=== PATIENT | female | born 1970 | race Caucasian/White ===

== ENCOUNTER 2017-02-28 13:42 | Emergency (ER) | payer OTHER ==
[2017-02-28 13:53] VITALS: BP 107/78; PULSE 86; TEMP 99.7; BMI 22.1
[2017-02-28] MEDS ORDERED: SODIUM CHLORIDE 1,000 ML IV STA (15:52)
--- NOTE | 2017-02-28 16:01 | PDOC ---
History of Present Illness - General Chief Complaint: Pain Stated Complaint: PAIN Time Seen by Provider: 02/28/17 14:34 - History of Present Illness Initial Comments: 02/28/17 15:54 Patient is a 46 yo F, with a PMH of Hypothyroidism, HTN, COPD, RA, HLD, Anxiety , presented today because of abdominal pain, nausea, and vomiting that has been going on for 2 months. She said 2 months there was mold in her house, especially in the refrigerator, and ever since then she has been feeling sick. She describes the pain has crampy, 5/10, intermittent pain and is getting worse. She also has diarrhea that started around the same time. She describes stool as mushy with white "worms" in it. She said she was given flagyl and probioitics by a doctor but did not notice any improvement in symptoms. She also says she hasn't been taking any of her medications for a few months because of insurance issues. Past History - Past Medical History Allergies/Adverse Reactions: Allergies Allergy/AdvReac Type Severity Reaction Status Date / Time cephalexin monohydrate Allergy Vomiting Verified 02/28/17 13:53 [From Keflex] erythromycin base Allergy Vomiting Verified 02/28/17 13:53 Penicillins Allergy Vomiting Verified 02/28/17 13:53 Sulfa (Sulfonamide Allergy Vomiting Verified 02/28/17 13:53 Antibiotics) ibuprofen AdvReac Severe Vomiting Verified 02/28/17 13:53 ALEVE AdvReac Severe Vomiting Uncoded 02/28/17 13:53 ASPIRIN AdvReac Severe Vomiting Uncoded 02/28/17 13:53 Home Medications: Ambulatory Orders Alprazolam 1 mg PO QID PRN 03/26/16 Levothyroxine [Synthroid -] 100 mcg PO DAILY 03/26/16 Methadone [Dolophine -] 90 mg PO DAILY 03/26/16 Oxycodone HCl/Acetaminophen [Percocet 5-325 mg Tablet] 1 - 2 tab PO Q6H PRN #30 tab MDD 8 03/27/16 Anemia: Yes (IN THE PAST 10 YRS AGO) Cardiac Disorders: No CVA: No COPD: Yes (EMPHYSEMA) Diabetes: No GI Disorders: No Disorders: No HTN: No Hypercholesterolemia: Yes Liver Disease: No Psychiatric Problems: Yes (ANXIETY) Seizures: Yes (CHILDHOOD THEN GREW OUT OF) Thyroid Disease: Yes Other medical history: rheumthoid arthritis - Surgical History Abdominal Surgery: No Appendectomy: No Cardiac Surgery: No Cholecystectomy: Yes (gALL BLADDER) Lung Surgery: No Neurologic Surgery: No Orthopedic Surgery: No - Suicide/Smoking/Psychosocial Hx Smoking History: Current every day smoker Have you smoked in the past 12 months: Yes Number of Cigarettes Smoked Daily: 20 Information on smoking cessation initiated: Yes 'Breaking Loose' booklet given: 12/21/15 Hx Alcohol Use: No Drug/Substance Use Hx: No Substance Use Type: None Hx Substance Use Treatment: No Review of Systems - Review of Systems Able to Perform ROS?: Yes Constitutional: No: Chills, Diaphoresis, Fever HEENTM: No: Nose Congestion, Throat Pain Respiratory: No: Cough, Shortness of Breath, Wheezing Cardiac (ROS): No: Chest Pain, Edema ABD/GI: Yes: Diarrhea, Nausea, Vomiting. No: Rectal Bleeding Neurological: Yes: Headache. No: Numbness, Tingling, Tremors Psychiatric: Yes: Anxiety *Physical Exam - Vital Signs Last Vital Signs Temp Pulse Resp BP Pulse Ox 99.7 F H 86 14 107/78 100 02/28/17 13:47 02/28/17 13:47 02/28/17 13:47 02/28/17 13:47 02/28/17 13:47 - Physical Exam Comments: 02/28/17 16:07 General: NAD, appears comfortable HEENT: dry mucous membranes, orophyranx clear, anicteric Neck: supple Heart: Regular rate and rhythm, no Murmurs rubs or gallops Lungs: CTA B/L, no rales rhonchi or wheezing Abd: +BS, NT, ND EXT: no edema ED Treatment Course - LABORATORY CBC & Chemistry Diagram: 02/28/17 16:00 02/28/17 16:00 - RADIOLOGY Radiology Studies Ordered: Category Date Time Status CHEST X-RAY PORTABLE* [RAD] Stat Radiology 02/28/17 15:49 Ordered Medical Decision Making - Medical Decision Making 02/28/17 16:09 Abdominal Pain CBC, CMP U/A Chest X ray Stool culture Stool ova and parasites C. diff toxin Urine 02/28/17 19:[address] noted. Patient s/p cholecystectomy. Will discharge. Will need to follow up GI outpatient. 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 If there is an emergency, please go to your nearest emergency room.
[2017-02-28 16:17] LABS: MCHC 34.6 g/dl (32.0-36.0); MEAN CELL VOLUME 92.7 fl (80-96); MEAN PLT VOLUME 8.1 fl (7.5-11.1); PLATELET COUNT 241 K/MM3 (134-434); RDW 14.5 % (11.6-15.6); WHITE BLOOD COUNT 5.3 K/mm3 (4.0-10.0)
[2017-02-28 16:35] LABS: URINE APPEARANCE SLCLOUDY; URINE BILIRUBIN NEGATIVE (NEGATIVE); URINE BLOOD 1+ (NEGATIVE); URINE COLOR AMBER; URINE GLUCOSE (UA) NEGATIVE (NEGATIVE); URINE KETONE NEGATIVE (NEGATIVE); URINE NITRITE NEGATIVE (NEGATIVE); URINE PROTEIN NEGATIVE (NEGATIVE)
[2017-02-28 16:41] LABS: ALBUMIN 3.6 g/dl (3.4-5.0); ANION GAP 3 (8-16); CALCIUM 8.1 mg/dL (8.5-10.1); CO2 30 mmol/L (21-32); GLUCOSE,RANDOM 75 mg/dL (74-106); SGOT/AST 14 U/L (15-37); SGPT/ALT 15 U/L (12-78)
[2017-02-28 16:43] LABS: ALK PHOS 68 U/L (45-117); BILIRUBIN,TOTAL 0.4 mg/dL (0.2-1.0); TOT PROT 6.5 g/dl (6.4-8.2)
[2017-02-28 16:46] LABS: URINE BACTERIA RARE /hpf (NONE SEEN); URINE MUCUS RARE; URINE RBC 24 /hpf (0-3); URINE WBC 1 /hpf (3-5)
--- NOTE | 2017-02-28 16:47 | PDOC ---
Attending Attestation - Resident Resident Name: Soni Calderón - ED Attending Attestation I have performed the following: I have examined & evaluated the patient, The case was reviewed & discussed with the resident, I agree w/resident's findings & plan, Exceptions are as noted - HPI HPI: 02/28/17 16:48 46 F with h/o Hypothyroidism, HTN, COPD, RA, HLD, presents to ER with 2 months of abdominal pain and loose stools. She states that ever since she had a colonoscopy 2 months ago, she has had abdominal discomfort. The pain is diffuse , but often localizes to her LLQ. She states that she has daily soft, loose stools, but no watery diarrhea. She endorses chills but no fevers. Pt also complains of occasional nausea. Pt states that she is followed by GI Dr. Olvera. She has seen him for these problems and was given a course of flagyl, which she states did alleviate her symptoms temporarily. - Physicial Exam PE: 02/28/17 16:50 "GENERAL: Awake, alert, and fully oriented, in no acute distress HEAD: No signs of trauma EYES: PERRLA, EOMI, sclera anicteric, conjunctiva clear ENT: Auricles normal inspection, hearing grossly normal, nares patent, oropharynx clear without exudates. Moist mucosa NECK: Nontender, no stepoffs, Normal ROM, supple, no lymphadenopathy, JVD, or masses LUNGS: Breath sounds equal, clear to auscultation bilaterally. No wheezes, and no crackles HEART: Regular rate and rhythm, normal S1 and S2, no murmurs, rubs or gallops ABDOMEN: Soft, mild LLQ TTP, normoactive bowel sounds. No guarding, no rebound. No masses EXTREMITIES: Normal range of motion, no edema. No clubbing or cyanosis. No cords, erythema, or tenderness NEUROLOGICAL: Cranial nerves II through XII intact. 5/5 strength and sensation in all extremities, Normal speech, normal gait SKIN: Warm, Dry, normal turgor, no rashes or lesions noted. " - Medical Decision Making 02/28/17 16:50 46 F with 2 months of abdominal pain and loose stools. Exam notable for LLQ tenderness. Will r/o colitis with CT scan. Will also send stool cultures and O& P to evaluate for infectious diarrhea. - Labs - CTAP - IVF - Reassess
[2017-02-28 18:44] LABS: URINE LEUK ESTERASE Negative (NEGATIVE)
--- NOTE | 2017-02-28 20:04 | PDOC ---
*Physical Exam - Vital Signs Last Vital Signs Temp Pulse Resp BP Pulse Ox 99.7 F H 86 14 107/78 100 02/28/17 13:47 02/28/17 13:47 02/28/17 13:47 02/28/17 13:47 02/28/17 13:47 ED Treatment Course - LABORATORY CBC & Chemistry Diagram: 02/28/17 16:00 02/28/17 16:00 - ADDITIONAL ORDERS Additional order review: Laboratory Results 02/28/17 02/28/17 16:00 16:00 Sodium 136 Potassium 4.4 Chloride 103 Carbon Dioxide 30 Anion Gap 3 L BUN 8 D Creatinine 1.0 Creat Clearance w eGFR 59.43 Random Glucose 75 Calcium 8.1 L Total Bilirubin 0.4 D AST 14 L D ALT 15 D Alkaline Phosphatase 68 D Total Protein 6.5 Albumin 3.6 Urine Color [place] Urine Appearance Slcloudy Urine pH 5.0 Ur Specific [place] 1.016 Urine Protein Negative Urine Glucose (UA) Negative Urine Ketones Negative Urine Blood 1+ H Urine Nitrite Negative Urine Bilirubin Negative Urine Urobilinogen 2.0 H Ur Leukocyte Esterase Negative Urine RBC 24 Urine WBC 1 Ur Epithelial Cells Few Urine Bacteria Rare Urine Mucus Rare Urine HCG, Qual Negative 02/28/17 16:00 RBC 3.49 L MCV 92.7 MCHC 34.6 RDW 14.5 MPV 8.1 D - Medications Given in the ED: ED Medications Discontinued Medications Generic Name Dose Route Start Last Admin Trade Name Freq PRN Reason Stop Dose Admin Sodium Chloride 1,000 mls @ 1,000 mls/hr 02/28/17 15:52 02/28/17 16:14 Normal Saline - IV 02/28/17 16:51 1,000 mls/hr ASDIR STA Administration Medical Decision Making - Medical Decision Making 02/28/17 20:02 Received signout on this 46-year-old female with crampy abdominal pain and diarrhea, recently treated with Flagyl. Plan at time of sign out was to follow up CAT scan to rule out colitis and to discuss disposition with Dr. Olvera, her gastric neurologist. CAT scan shows no evidence of colitis or acute pathology, patient is status post cholecystectomy which explains CAT scan findings. Case discussed with Dr. Olvera, recommends discharge and will follow-up in the office but does not recommend repeat antibiotics at this time. Patient understands return criteria. 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 If there is an emergency, please go to your nearest emergency room. - Post Discharge Activity
--- NOTE | 2017-03-01 09:46 | EKG ---
Test Reason : Blood Pressure : / mmHG Vent. Rate : 062 BPM Atrial Rate : 062 BPM P-R Int : 182 ms QRS Dur : 086 ms QT Int : 450 ms P-R-T Axes : 063 024 062 degrees QTc Int : 456 ms NORMAL SINUS RHYTHM SEPTAL INFARCT (CITED ON OR BEFORE 15-FEB-2015) ABNORMAL ECG WHEN COMPARED WITH ECG OF 15-FEB-2015 16:40, NO SIGNIFICANT CHANGE WAS FOUND Confirmed by SIS UREÑA MD ([id number]) on 03/01/2017 9:46:38 AM Referred By: Confirmed By:SIS UREÑA MD
== END 2017-02-28 20:19 | disposition home or self-care (01) ==
LOC: JER 13:42
PROC: 3E0337Z Introduction of Electrolytic and Water Balance Substance into Peripheral Vein, Percutaneous Approach (ICD-10-PCS; principal; 2017-02-28)
DX: R10.9 Unspecified abdominal pain (principal); Z91.14 Patient's other noncompliance with medication regimen; I10 Essential (primary) hypertension; E78.00 Pure hypercholesterolemia, unspecified; E03.9 Hypothyroidism, unspecified; J44.9 Chronic obstructive pulmonary disease, unspecified; F41.9 Anxiety disorder, unspecified; M06.9 Rheumatoid arthritis, unspecified; F17.210 Nicotine dependence, cigarettes, uncomplicated; Z86.73 Personal history of transient ischemic attack (TIA), and cerebral infarction without residual deficits; Z90.49 Acquired absence of other specified parts of digestive tract
CPT/HCPCS: 36415; 71010-TC; 74177-TC; 80053; 81003; 81015; 84443; 84703; 85027; 93005; 93010; 99281-25

== ENCOUNTER 2018-12-16 07:07 | Emergency (ER) | payer OTHER ==
[2018-12-16 07:23] VITALS: BMI 19.5
--- NOTE | 2018-12-16 07:37 | PDOC ---
History of Present Illness - General Chief Complaint: Pain Stated Complaint: ABD PAIN Time Seen by Provider: 12/16/18 07:37 History Source: Patient Exam Limitations: No Limitations - History of Present Illness Initial Comments: 48 year old female with PMH RA (noncompliant with medication), multiple kidney stones, multiple UTIs, rectal fissure presented to ED for dysuria x2 days. Pt reported she went to [facility] x2 days ago, was diagnosed with a UTI , prescribed Macrobid. Pt was unable to obtain the prescription for a day, and so only took 3 doses yesterday. Pt reported her symptoms are worsening, constant. Pt reported pain to her entire vaginal area. Pt admitted to subjective fever, generalized weakness, nausea, vomiting, suprapubic pain. Pt admitted to being sexually active. Past History - Past Medical History Allergies/Adverse Reactions: Allergies Allergy/AdvReac Type Severity Reaction Status Date / Time cephalexin monohydrate Allergy Vomiting Verified 12/16/18 07:16 [From Keflex] erythromycin base Allergy Vomiting Verified 12/16/18 07:16 Penicillins Allergy Vomiting Verified 12/16/18 07:16 Sulfa (Sulfonamide Allergy Vomiting Verified 12/16/18 07:16 Antibiotics) ibuprofen AdvReac Severe Vomiting Verified 12/16/18 07:16 ALEVE AdvReac Severe Vomiting Uncoded 12/16/18 07:16 ASPIRIN AdvReac Severe Vomiting Uncoded 12/16/18 07:16 Home Medications: Ambulatory Orders Alprazolam 1 mg PO QID PRN 03/26/16 Levothyroxine [Synthroid -] 100 mcg PO DAILY 03/26/16 Methadone [Dolophine -] 90 mg PO DAILY 03/26/16 Oxycodone HCl/Acetaminophen [Percocet 5-325 mg Tablet] 1 - 2 tab PO Q6H PRN #30 tab MDD 8 03/27/16 Ciprofloxacin HCl [Cipro] 500 mg PO BID #13 tablet 12/16/18 Ondansetron [Zofran Odt -] 4 mg SL TID #9 od.tablet 12/16/18 Phenazopyridine HCl [Pyridium] 200 mg PO TID #6 tablet 12/16/18 Anemia: Yes (IN THE PAST 10 YRS AGO) Cardiac Disorders: No CVA: No COPD: Yes (EMPHYSEMA) Diabetes: No GI Disorders: No Disorders: No HTN: No Hypercholesterolemia: Yes Liver Disease: No Psychiatric Problems: Yes (ANXIETY) Seizures: Yes (CHILDHOOD THEN GREW OUT OF) Thyroid Disease: Yes Other medical history: anal fisure, rheumatoid arthritis, degenerative disc disease - Surgical History Abdominal Surgery: No Appendectomy: No Cardiac Surgery: No Cholecystectomy: Yes (gALL BLADDER) Lung Surgery: No Neurologic Surgery: No Orthopedic Surgery: No - Suicide/Smoking/Psychosocial Hx Smoking History: Current every day smoker Have you smoked in the past 12 months: Yes Number of Cigarettes Smoked Daily: 20 Information on smoking cessation initiated: No 'Breaking Loose' booklet given: 12/21/15 Hx Alcohol Use: No Drug/Substance Use Hx: No Substance Use Type: None Hx Substance Use Treatment: No Review of Systems - Review of Systems Able to Perform ROS?: Yes Comments:: General: denied fever, chills, generalized weakness. HEENT: denied sore throat, rhinorrhea, ear pain. Cardiovascular: denied chest pain, palpitations, syncope, diaphoresis. Respiratory: denied shortness of breath, cough, sputum production, hemoptysis. Gastrointestinal: admitted to abdominal pain, nausea, vomiting. denied diarrhea , constipation, blood in stool. Genitourinary: admitted to dysuria, increased urinary frequency, flank pain. denied hematuria, urinary incontinence. Back: denied back pain. Musculoskeletal: denied joint pain, muscle pain, joint swelling. Neurological: denied headache, dizziness, numbness, tingling, weakness. Integumentary: denied rash, laceration, abrasion. Hematologic/Lymphatic: denied bruising or bleeding. *Physical Exam - Vital Signs Last Vital Signs Temp Pulse Resp BP Pulse Ox 98 F 76 18 150/88 99 12/16/18 07:10 12/16/18 07:10 12/16/18 07:10 12/16/18 07:10 12/16/18 07:10 - Physical Exam Comments: Constitutional: Well-nourished, Well-developed, appearing stated age. HEENT: head is normocephalic, atraumatic. EOMI. PERRLA. Neck: supple. Full ROM. Cardiovascular: regular heart rhythm. no murmurs. no pericardial friction rub. Respiratory: clear to auscultation bilaterally. no crackles, rhonchi or wheezing. no stridor. Gastrointestinal: soft, nontender. normal bowel sounds. no rebound, guarding, masses. Extremities: peripheral pulses intact. no lower extremity edema. Neurological: CN 2-12 grossly intact. moves all four extremities. Psych: awake, alert, oriented x3. follows commands. answers questions appropriately. Pelvic: normal external genitalia. no blood in vaginal canal. cervical os closed. no CMT. no adnexal tenderness bilaterally. no abnormal discharge. ED Treatment Course - LABORATORY CBC & Chemistry Diagram: 12/16/18 08:20 12/16/18 11:49 Medical Decision Making - Medical Decision Making 12/16/18 08:09 48 year old female with above PMH presented to ED for dysuria associated with suprapubic pain, nausea, vomiting, generalized weakness, subjective fever. Pt denied taking NSAID/Tylenol today. Pt reported she would like to not treat a potential STI infection before the results return. Initial Vital Signs Temp Pulse Resp BP Pulse Ox 98 F 76 18 150/88 99 12/16/18 07:10 12/16/18 07:10 12/16/18 07:10 12/16/18 07:10 12/16/18 07:10 Afebrile. No tachycardia. No tachypnea. Hypertensive. No hypoxia on room air. Labs ordered: CBC, CMP, serum , UA/UC, GC/Chlamydia amplification Imaging ordered: none Medications ordered: tylenol IV, normal saline bolus 1000 cc once, zofrna 4 mg IV once 12/16/18 08:58 Urine Test Results Urine Color Yellow 12/16/18 08:20 Urine Appearance Clear 12/16/18 08:20 Urine pH 6.0 (5.0-8.0) 12/16/18 08:20 Ur Specific Cadet 1.006 (1.010-1.035) L 12/16/18 08:20 Urine Protein Negative (NEGATIVE) 12/16/18 08:20 Urine Glucose (UA) Negative (NEGATIVE) 12/16/18 08:20 Urine Ketones Trace (NEGATIVE) H 12/16/18 08:20 Urine Blood 3+ (NEGATIVE) H 12/16/18 08:20 Urine Nitrite Negative (NEGATIVE) 12/16/18 08:20 Urine Bilirubin Negative (NEGATIVE) 12/16/18 08:20 Ur Leukocyte Esterase Negative (NEGATIVE) 12/16/18 08:20 WBC = 0 Bacteria = 20 -Pt has taken 3 Macrobid doses 12/16/18 09:01 CBC WBC 7.9 K/mm3 (4.0-10.0) 12/16/18 08:20 RBC 4.00 M/mm3 (3.60-5.2) 12/16/18 08:20 Hgb 13.0 GM/dL (10.7-15.3) 12/16/18 08:20 Hct 37.6 % (32.4-45.2) 12/16/18 08:20 MCV 93.8 fl (80-96) 12/16/18 08:20 MCH 32.4 pg (25.7-33.7) 12/16/18 08:20 MCHC 34.5 g/dl (32.0-36.0) 12/16/18 08:20 RDW 13.4 % (11.6-15.6) 12/16/18 08:20 Plt Count 260 K/MM3 (134-434) D 12/16/18 08:20 MPV 8.5 fl (7.5-11.1) D 12/16/18 08:20 Absolute Neuts (auto) 6.0 K/mm3 (1.5-8.0) 12/16/18 08:20 Neutrophils % 75.2 % (42.8-82.8) D 12/16/18 08:20 Lymphocytes % 15.2 % (8-40) D 12/16/18 08:20 Monocytes % 7.9 % (3.8-10.2) 12/16/18 08:20 Eosinophils % 1.1 % (0-4.5) 12/16/18 08:20 Basophils % 0.6 % (0-2.0) 12/16/18 08:20 Nucleated RBC % 0 % (0-0) 12/16/18 08:20 No leukocytosis. No left shift. CMP Sodium 126 mmol/L (136-145) L 12/16/18 08:20 Potassium 4.3 mmol/L (3.5-5.1) 12/16/18 08:20 Chloride 95 mmol/L (98-107) L 12/16/18 08:20 Carbon Dioxide 24 mmol/L (21-32) 12/16/18 08:20 Anion Gap 8 MMOL/L (8-16) 12/16/18 08:20 BUN 5.3 mg/dL (7-18) L 12/16/18 08:20 Creatinine 1.0 mg/dL (0.55-1.3) 12/16/18 08:20 Est GFR (CKD-EPI)AfAm 76.61 12/16/18 08:20 Est GFR (CKD-EPI)NonAf 66.10 12/16/18 08:20 Random Glucose 86 mg/dL (74-106) 12/16/18 08:20 Calcium 9.3 mg/dL (8.5-10.1) 12/16/18 08:20 Total Bilirubin 1.0 mg/dL (0.2-1) 12/16/18 08:20 AST 19 U/L (15-37) 12/16/18 08:20 ALT 15 U/L (13-61) 12/16/18 08:20 Alkaline Phosphatase 68 U/L (45-117) 12/16/18 08:20 Total Protein 7.5 g/dl (6.4-8.2) 12/16/18 08:20 Albumin 4.3 g/dl (3.4-5.0) 12/16/18 08:20 Hyponatremia. -IVF running 12/16/18 10:07 CT abdomen/pelvis report: Marian Name: ORLANDO PHELPS DEPARTMENT OF RADIOLOGY Phys: Kassie Jensen RESIDENT : 1970 Age: 48 Sex: F [facility] Acct: [id number] Loc: [address] Exam Date: 12/16/18 Status: [place] [id number] Unit Number: [id number] ACCESSION # : [id number] EXAM#: TYPE/EXAM: RESULT: [id number] CT/SPIRAL- RENAL-STONE CT CT of the abdomen and pelvis without oral or IV contrast. HISTORY: 48-year-old female with dysuria and right flank pain TECHNIQUE: Multiaxial CT scan of the abdomen and pelvis without oral or IV contrast was obtained from the lung bases to the symphysis pubis. Sagittal and coronal reformats were performed. Comparison is made to prior exam dated February 28, 2017. FINDINGS: The visualized lung bases and inferior mediastinum are grossly unremarkable. Evaluation of the solid abdominal organs and bowel loops is limited due to lack of oral and IV contrast. The unenhanced liver, spleen, and pancreas are unremarkable. The patient is status post cholecystectomy. The CBD is dilated measuring up to 1.2 cm with mild central intrahepatic biliary ductal dilatation , unchanged since the prior exam. The adrenal glands are unremarkable. No right or left renal stones are seen. There is fullness in the right and left renal calyces and ureters however without obvious hyperdense stone. Visualization of the ureters is limited due to paucity of periureteral fat. There is a 6 mm faint hyperdensity in the left upper renal pole (axial image 31). No periureteral or perinephric stranding seen. No stones seen in the urinary bladder. The urinary bladder is nondistended limiting its evaluation. The uterus is unremarkable. No adnexal masses seen. Oral contrast traverses the small bowel to the colon with no evidence of abnormal bowel dilatation to suggest bowel obstruction. The appendix is normal. There is no evidence of pneumoperitoneum, or enlarged lymph nodes by CT size criteria. There is small free pelvic fluid. There is no gross destructive bony lesion. There is thoracolumbar spine scoliosis with significant L5-S1 disc degenerative changes There is moderate aortic and iliac mural calcifications. IMPRESSION: No CT evidence of nephrolithiasis or ureterolithiasis. Nonspecific symmetric mild fullness in the renal calyces and ureters without obvious obstructing process. If clinically indicated renal scan with diuretic may be obtained for further evaluation. 6 mm hyperdensity in the left upper renal pole possibly cyst containing proteinaceous material or blood products. This is commensurate with Bosniak 2F cyst. Follow-up MRI with contrast in 6 months is suggested. Small amount of free pelvic fluid is likely physiologic in a menstruating female. Alternatively this could be reactive to an inflammatory/infectious process. Correlate clinically. Status post cholecystectomy. Diffusely dilated CBD up to 1.2 cm with mild central intrahepatic biliary ductal dilatation, unchanged since the prior exam of 2016 likely physiologic postcholecystectomy phenomenon. Moderate aortoiliac mural calcifications. Thoracolumbar spine scoliosis with significant L5-S1 disc degenerative changes. Reported By: Jose Brice MD 12/16 1001 12/16/18 10:27 Pt informed of results and need for F/U with PCP/urology promptly. Pt advised to continue taking Macrobid. Pt reported she is uncomfortable taking Macrobid as she does not believe it is working and thinks it is making her vomit. Medications ordered: Cipro 500 mg PO once 12/16/18 11:09 Pt reassessed, reported improvement of symptoms. IVF still running. Pending repeat CMP for hyponatremia. 12/16/18 11:29 Pt reassessed, sleeping comfortably. IVF still running. 12/16/18 11:59 Repeat CMP drawn. Pending results. 12/16/18 12:41 CMP Sodium 134 mmol/L (136-145) L 12/16/18 11:49 Potassium 4.5 mmol/L (3.5-5.1) 12/16/18 11:49 Chloride 103 mmol/L (98-107) 12/16/18 11:49 Carbon Dioxide 24 mmol/L (21-32) 12/16/18 11:49 Anion Gap 7 MMOL/L (8-16) L 12/16/18 11:49 BUN 5.0 mg/dL (7-18) L 12/16/18 11:49 Creatinine 0.9 mg/dL (0.55-1.3) 12/16/18 11:49 Est GFR (CKD-EPI)AfAm 87.02 12/16/18 11:49 Est GFR (CKD-EPI)NonAf 75.08 12/16/18 11:49 Random Glucose 71 mg/dL (74-106) L 12/16/18 11:49 Calcium 8.4 mg/dL (8.5-10.1) L 12/16/18 11:49 Total Bilirubin 0.7 mg/dL (0.2-1) 12/16/18 11:49 AST 18 U/L (15-37) 12/16/18 11:49 ALT 13 U/L (13-61) 12/16/18 11:49 Alkaline Phosphatase 59 U/L (45-117) 12/16/18 11:49 Total Protein 6.6 g/dl (6.4-8.2) 12/16/18 11:49 Albumin 3.7 g/dl (3.4-5.0) 12/16/18 11:49 Serum , Qual Negative 12/16/18 08:20 Hyponatremia improved. Pt likely has UTI, will switch to Cipro based on patient request. No CT evidence of urinary obstruction. Incidental left renal cyst noted, pt informed to F/U with PCP/urology. Pt educated on Tylenol use for pain/fever control. Hyponatremia likely secondary to dehydration, decreased PO intake - improved with 2L normal saline. Pt discharged. Discharge medications: Pyridium, Cipro, Zofran SL *DC/Admit/Observation/Transfer Diagnosis at time of Disposition: UTI (urinary tract infection), Burning with urination, Hyponatremia, Renal cyst - Discharge Dispostion Disposition: HOME Condition at time of disposition: Improved Decision to Admit order: Yes - Prescriptions Prescriptions: Ciprofloxacin HCl [Cipro] 500 mg PO BID #13 tablet Ondansetron [Zofran Odt -] 4 mg SL TID #9 od.tablet Phenazopyridine HCl [Pyridium] 200 mg PO TID #6 tablet - Referrals Referrals: Ish Kathleen MD [Staff Physician] - Irving Gtz MD [Staff Physician] - Yony Joel MD [Primary Care Provider] - - Patient Instructions Printed Discharge Instructions: DI for Urinary Tract Infection (UTI), DI for Hyponatremia Additional Instructions: Your lab work showed your sodium was low. Eat three meals a day. Drink water throughout the day. Have this number repeated at your primary care doctor's office within 3 days. Your urine analysis was negative for UTI, the Macrobid is working. The rest of your lab work was normal. The STD testing will come back in a few days. Your CT showed no kidney stones, but incidentally a cyst was found on your left kidney. It was recommended by the radiologist to have a MRI Abdomen/Pelvis with IV contrast in 6 months to monitor this. Follow up with your urologist on this finding within 7 days. I have sent a prescription to your pharmacy for Cipro at your request to continue treating your UTI. Take as advised on label. I have sent a prescription to your pharmacy for Zofran, an anti-nausea medication. Take as advised on label. I have sent a prescription to your pharmacy for Pyridium. Take as advised on label. Take Tylenol over the counter for fever/pain. Take as advised on label. Drink lots of gatorade or pedialyte to stay hydrated and replace your electrolytes. Follow up with your urologist within 3 days. Your care is not complete until you follow up. I have provided you with a referral should you need one. Follow up with your primary care doctor within 3 days. Your care is not complete until you follow up. Return to the Emergency Department for fever>103F despite Tylenol use, vomiting despite Zofran use, increasing pain despite Tylenol use, chest pain, shortness of breath, lightheadedness, numbness, weakness, or any other new, worsening or concerning symptoms. - Post Discharge Activity Forms/Work/School Notes: Back to Work
--- NOTE | 2018-12-16 07:39 | PDOC ---
Attending Attestation - Resident Resident Name: Kassie Jensen - ED Attending Attestation I have performed the following: I have examined & evaluated the patient, The case was reviewed & discussed with the resident, I agree w/resident's findings & plan, Exceptions are as noted - HPI HPI: 12/16/18 08:33 48yo female with hx of UTI dx with a UTI on saturday at [facility] and started on Macrobid. Pt states she took the doses of macrobid yesterday. States n/v this am. States still with burning, urgency, and pelvic pain today. No cva ttp. No fevers or chills. No abd pain. No diarrhea. No cp/sob. No vaginal discharge. Also has hx of rectal fissures - has appt with GI today at 3p. - Physicial Exam PE: 12/16/18 08:40 Gen: aaox3, uncomfortable heart: +s1s2 reg lungs: cta b/l abd: soft, mild suprapubic ttp, no rebound or guarding, no cva ttp ext: no c/c/e - Medical Decision Making 12/16/18 08:40 a/p: 48yo female with hx of uti with dysuria and continued symptoms of uti -pelvic exam per the resident -will send labs, ua, ucx -gc chl sent -will hydrate, zofran, tylenol -pt is nontoxic in appearance, but appears uncomfortable, will add pyridium -pmd dr. rodriguez -will need nurse gynecology and urology follow up -has gi appt this afternoon. 12/16/18 09:05 pt with low sodium pt with blood in urine hx of stones, will order spiral ct 12/16/18 09:58 ivf hydration running will repeat bmp 12/16/18 10:27 ct reviewed mild fullness of renal pelvis, cyst upper part of kidney - poss containing blood or a proteinaceous material - resident discussed in detail. pt will need urology follow up as outpt 12/16/18 12:44 repeat sodium is stable pt feeling better will dc on cipro and urology follow up stable for dc to home
[2018-12-16] MEDS ORDERED: SODIUM CHLORIDE 1,000 ML IV STA ×2 (07:47→09:06)
[2018-12-16] MEDS ORDERED: ACETAMINOPHEN 1000 MG/100 ML VIAL (NON FORMULARY) IVPB ONE (07:47)
[2018-12-16] MEDS ORDERED: ACETAMINOPHEN INJECTION 100 ML IVPB ONE (07:57)
[2018-12-16] MEDS ORDERED: ONDANSETRON 4 MG/2 ML VIAL IVPUSH ONE (07:58)
[2018-12-16] MEDS ORDERED: ONDANSETRON 4 MG/2 ML VIAL ONE (08:00)
[2018-12-16 08:38] LABS: EPI CELLS 1.6 /HPF (0-5/HPF); HYALINE CASTS 1 /lpf (0-8); URINE APPEARANCE CLEAR; URINE BACTERIA 19.5 /hpf (NEGATIVE); URINE BILIRUBIN NEGATIVE (NEGATIVE); URINE COLOR YELLOW; URINE GLUCOSE (UA) NEGATIVE (NEGATIVE); URINE KETONE TRACE (NEGATIVE); URINE LEUK ESTERASE NEGATIVE (NEGATIVE); URINE NITRITE NEGATIVE (NEGATIVE); URINE PROTEIN NEGATIVE (NEGATIVE); URINE RBC 18 /hpf (0-4); URINE WBC 0 /hpf (0-5)
[2018-12-16 08:56] LABS: BASO % 0.6 % (0-2.0); EOS % 1.1 % (0-4.5); HEMATOCRIT 37.6 % (32.4-45.2); LYMPH % 15.2 % (8-40); MCH 32.4 pg (25.7-33.7); MCHC 34.5 g/dl (32.0-36.0); MEAN CELL VOLUME 93.8 fl (80-96); MEAN PLT VOLUME 8.5 fl (7.5-11.1); MONO % 7.9 % (3.8-10.2); NEUT % 75.2 % (42.8-82.8); PLATELET COUNT 260 K/MM3 (134-434); RDW 13.4 % (11.6-15.6); WHITE BLOOD COUNT 7.9 K/mm3 (4.0-10.0)
[2018-12-16 09:00] LABS: ALBUMIN 4.3 g/dl (3.4-5.0); BLOOD UREA NITROGEN 5.3 mg/dL (7-18); CALCIUM 9.3 mg/dL (8.5-10.1); POTASSIUM 4.3 mmol/L (3.5-5.1); TOT PROT 7.5 g/dl (6.4-8.2)
[2018-12-16] MEDS ORDERED: PHENAZOPYRIDINE HCL 100 MG TABLET (FP) PO ONE (09:06)
[2018-12-16] MEDS ORDERED: PHENAZOPYRIDINE HCL 100 MG TABLET (FP) ONE (09:32)
[2018-12-16] MEDS ORDERED: CIPROFLOXACIN 500 MG TABLET (RESTRICTED TO ID) PO ONE (10:37)
[2018-12-16 12:37] LABS: ALBUMIN 3.7 g/dl (3.4-5.0); BILIRUBIN,TOTAL 0.7 mg/dL (0.2-1); CALCIUM 8.4 mg/dL (8.5-10.1); CREATININE 0.9 mg/dL (0.55-1.3); POTASSIUM 4.5 mmol/L (3.5-5.1); TOT PROT 6.6 g/dl (6.4-8.2)
[2018-12-16 12:52] VITALS: BP 133/80; PULSE 56; TEMP 97.8
== END 2018-12-16 13:27 | disposition home or self-care (01) ==
LOC: JER 07:07
PROC: 3E033NZ Introduction of Analgesics, Hypnotics, Sedatives into Peripheral Vein, Percutaneous Approach (ICD-10-PCS; principal; 2018-12-16)
PROC: 3E033GC Introduction of Other Therapeutic Substance into Peripheral Vein, Percutaneous Approach (ICD-10-PCS; 2018-12-16)
PROC: 3E0337Z Introduction of Electrolytic and Water Balance Substance into Peripheral Vein, Percutaneous Approach (ICD-10-PCS; 2018-12-16)
DX: N39.0 Urinary tract infection, site not specified (principal); R30.0 Dysuria; E87.1 Hypo-osmolality and hyponatremia; N28.1 Cyst of kidney, acquired; F17.210 Nicotine dependence, cigarettes, uncomplicated; F41.9 Anxiety disorder, unspecified
CPT/HCPCS: 36415; 74176-TC; 80053; 81003; 84703; 85025; 87086; 87491; 87591; 96361; 96374; 96375; 99282-25; J0131; J7030

== ENCOUNTER 2019-01-03 11:03 | Emergency (ER) | payer OTHER ==
[2019-01-03 11:09] VITALS: BP 124/86; PULSE 79; TEMP 98; BMI 19.4
[2019-01-03] MEDS ORDERED: ONDANSETRON 4 MG/2 ML VIAL IVPUSH ONE (11:31)
[2019-01-03] MEDS ORDERED: morphine CARPU-JECT 2 MG/1 ML DISP.SYRIN IVPUSH ONE ×2 (11:31→13:56)
[2019-01-03] MEDS ORDERED: SODIUM CHLORIDE 1,000 ML IV STA (11:31)
[2019-01-03] MEDS ORDERED: morphine SULFATE 4 MG/ML VIAL ONE ×2 (11:41→14:07)
[2019-01-03] MEDS ORDERED: ONDANSETRON 4 MG/2 ML VIAL ONE (11:41)
[2019-01-03 12:17] LABS: BASO % 0.6 % (0-2.0); EOS % 1.8 % (0-4.5); HEMATOCRIT 36.5 % (32.4-45.2); HEMOGLOBIN 12.5 GM/dL (10.7-15.3); LYMPH % 19.2 % (8-40); MCH 32.4 pg (25.7-33.7); MCHC 34.2 g/dl (32.0-36.0); MEAN CELL VOLUME 94.8 fl (80-96); MEAN PLT VOLUME 8.3 fl (7.5-11.1); MONO % 7.8 % (3.8-10.2); NEUT % 70.6 % (42.8-82.8); PLATELET COUNT 283 K/MM3 (134-434); RBC 3.85 M/mm3 (3.60-5.2); RDW 13.9 % (11.6-15.6); WHITE BLOOD COUNT 7.9 K/mm3 (4.0-10.0)
[2019-01-03 12:20] LABS: URINE APPEARANCE Clear; URINE BILIRUBIN Negative (NEGATIVE); URINE COLOR Yellow; URINE GLUCOSE (UA) Negative (NEGATIVE); URINE KETONE Negative (NEGATIVE); URINE LEUK ESTERASE Negative (NEGATIVE); URINE NITRITE Negative (NEGATIVE); URINE PROTEIN Negative (NEGATIVE); URINE UROBILINOGEN 0.2 mg/dL (0.2-1.0)
[2019-01-03 12:34] LABS: ALBUMIN 4.2 g/dl (3.4-5.0); BILIRUBIN,TOTAL 0.6 mg/dL (0.2-1); BLOOD UREA NITROGEN 8.2 mg/dL (7-18); CALCIUM 9.1 mg/dL (8.5-10.1); CREATININE 1.1 mg/dL (0.55-1.3); POTASSIUM 3.8 mmol/L (3.5-5.1); TOT PROT 7.5 g/dl (6.4-8.2)
[2019-01-03 12:39] LABS: EPI CELLS 1.5 /HPF (0-5/HPF); URINE BACTERIA 16.4 /hpf (NEGATIVE); URINE RBC 7.6 /hpf (0-4)
[2019-01-03 13:42] LABS: YEAST NONE SEEN (NEGATIVE)
[2019-01-03] MEDS ORDERED: DEXTROSE 5%-NORMAL SALINE 1,000 ML IV ONE (13:56)
--- NOTE | 2019-01-03 14:04 | PDOC ---
History of Present Illness - General Chief Complaint: Pain, Acute Stated Complaint: KIDNEY PAIN Time Seen by Provider: 01/03/19 11:25 History Source: Patient Exam Limitations: No Limitations - History of Present Illness Travel History: No Initial Comments: 01/03/19 12:00 48-year-old female presents to ED with complaints of bilateral flank pain mild dysuria, and vaginal burning with urination. Patient states took antibiotics a few weeks ago yet symptoms still continue. Patient still complaining of nausea and decreased appetite since onset but denies fever, chills, vaginal discharge, or irregular menses. Timing/Duration: reports: intermittent Quality: reports: moderate, burning, cramping Abdominal Pain Onset Location: reports: flank Aggravating Factors: improves with: Voiding Alleviating Factors: improves with: None Past History - Travel Traveled outside of the country in the last 30 days: No Close contact w/someone who was outside of country & ill: No - Past Medical History Allergies/Adverse Reactions: Allergies Allergy/AdvReac Type Severity Reaction Status Date / Time cephalexin monohydrate Allergy Vomiting Verified 01/03/19 11:09 [From Keflex] erythromycin base Allergy Vomiting Verified 01/03/19 11:09 Penicillins Allergy Vomiting Verified 01/03/19 11:09 Sulfa (Sulfonamide Allergy Vomiting Verified 01/03/19 11:09 Antibiotics) ibuprofen AdvReac Severe Vomiting Verified 12/16/18 07:16 ALEVE AdvReac Severe Vomiting Uncoded 01/03/19 11:09 ASPIRIN AdvReac Severe Vomiting Uncoded 01/03/19 11:09 Home Medications: Ambulatory Orders Alprazolam 1 mg PO QID PRN 03/26/16 Levothyroxine [Synthroid -] 100 mcg PO DAILY 03/26/16 Methadone [Dolophine -] 90 mg PO DAILY 03/26/16 Oxycodone HCl/Acetaminophen [Percocet 5-325 mg Tablet] 1 - 2 tab PO Q6H PRN #30 tab MDD 8 03/27/16 Ciprofloxacin HCl [Cipro] 500 mg PO BID #13 tablet 12/16/18 Ondansetron [Zofran Odt -] 4 mg SL TID #9 od.tablet 12/16/18 Phenazopyridine HCl [Pyridium] 200 mg PO TID #6 tablet 12/16/18 Anemia: Yes (IN THE PAST 10 YRS AGO) Cardiac Disorders: No CVA: No COPD: Yes (EMPHYSEMA) Diabetes: No GI Disorders: No Disorders: No HTN: No Hypercholesterolemia: Yes Kidney Stones: Yes Liver Disease: No Psychiatric Problems: Yes (ANXIETY) Seizures: Yes (CHILDHOOD THEN GREW OUT OF) Thyroid Disease: Yes - Surgical History Abdominal Surgery: No Appendectomy: No Cardiac Surgery: No Cholecystectomy: Yes (gALL BLADDER) Lung Surgery: No Neurologic Surgery: No Orthopedic Surgery: No - Suicide/Smoking/Psychosocial Hx Smoking History: Current every day smoker Have you smoked in the past 12 months: Yes Number of Cigarettes Smoked Daily: 20 Information on smoking cessation initiated: No 'Breaking Loose' booklet given: 12/21/15 Hx Alcohol Use: No Drug/Substance Use Hx: No Substance Use Type: None Hx Substance Use Treatment: No Patient Lives Alone: No Lives with/in: children Review of Systems - Review of Systems Able to Perform ROS?: Yes Constitutional: Yes: Loss of Appetite HEENTM: No: Symptoms Reported Respiratory: No: Symptoms reported Cardiac (ROS): No: Symptoms Reported ABD/GI: Yes: Nausea, Poor Appetite, Poor Fluid Intake. No: Constipated, Diarrhea : Yes: Burning, Dysuria, Flank Pain. No: Discharge, Frequency Musculoskeletal: No: Symptoms Reported Integumentary: No: Symptoms Reported Neurological: No: Symptoms reported Hematologic/Lymphatic: No: Symptoms Reported *Physical Exam - Vital Signs Last Vital Signs Temp Pulse Resp BP Pulse Ox 98 F 79 18 124/86 99 01/03/19 11:06 01/03/19 11:06 01/03/19 11:06 01/03/19 11:06 01/03/19 11:06 - Physical Exam General Appearance: Yes: Nourished, Appropriately Dressed. No: Apparent Distress HEENT: positive: EOMI, NELSON, TMs Normal, Pharynx Normal (dry mouth) Neck: positive: Supple Respiratory/Chest: positive: Lungs Clear, Normal Breath Sounds. negative: Respiratory Distress, Accessory Muscle Use Cardiovascular: positive: Regular Rhythm, Regular Rate. negative: Murmur Female Pelvic Exam: positive: normal external exam. negative: discharge, vaginal bleeding Gastrointestinal/Abdominal: positive: Soft, Tenderness (mild mid suprapubic) Integumentary: positive: Normal Color, Dry, Warm Neurologic: positive: Motor Strength 5/5 ( ambulatory). negative: Normal Mood/ Affect (anxious and crying frequently) ED Treatment Course - LABORATORY CBC & Chemistry Diagram: 01/03/19 11:48 01/03/19 11:48 - ADDITIONAL ORDERS Additional order review: Laboratory Results 01/03/19 01/03/19 11:48 11:48 Sodium 133 L Potassium 3.8 Chloride 94 L Carbon Dioxide 30 Anion Gap 9 BUN 8.2 Creatinine 1.1 Est GFR (CKD-EPI)AfAm 68.27 Est GFR (CKD-EPI)NonAf 58.91 Random Glucose 82 Calcium 9.1 Total Bilirubin 0.6 AST 13 L ALT 12 L Alkaline Phosphatase 67 Total Protein 7.5 Albumin 4.2 Lipase 70 L Urine Color Yellow Urine Appearance Clear Urine pH 7.0 Ur Specific [place] 1.010 Urine Protein Negative Urine Glucose (UA) Negative Urine Ketones Negative Urine Blood 2+ H Urine Nitrite Negative Urine Bilirubin Negative Urine Urobilinogen 0.2 Ur Leukocyte Esterase Negative Urine WBC (Auto) 1.0 Urine RBC (Auto) 7.6 Urine Casts (Auto) 1.10 U Epithel Cells (Auto) 1.5 Urine Bacteria (Auto) 16.4 Urine Yeast (Auto) None seen 01/03/19 11:48 RBC 3.85 MCV 94.8 MCHC 34.2 RDW 13.9 MPV 8.3 Neutrophils % 70.6 Lymphocytes % 19.2 D Monocytes % 7.8 Eosinophils % 1.8 Basophils % 0.6 - RADIOLOGY Radiology Studies Ordered: Category Date Time Status KIDNEY / RENAL US [US] Stat Ultrasound 01/03/19 11:33 Ordered - Medications Given in the ED: ED Medications Discontinued Medications Generic Name Dose Route Start Last Admin Trade Name Sherq PRN Reason Stop Dose Admin Sodium Chloride 1,000 mls @ 1,000 mls/hr 01/03/19 11:31 01/03/19 12:00 Normal Saline - IV 01/03/19 12:30 1,000 mls/hr ASDIR STA Administration Morphine Sulfate 4 mg 01/03/19 11:31 01/03/19 11:59 Morphine Injection - IVPUSH 01/03/19 11:32 4 mg ONCE ONE Administration Ondansetron HCl 4 mg 01/03/19 11:31 01/03/19 12:00 Zofran Injection IVPUSH 01/03/19 11:32 4 mg ONCE ONE Administration Medical Decision Making - Medical Decision Making 01/03/19 12:46 Chief complaint: Bilateral flank pain vaginal burning and mild dysuria. patient on antibiotics 2 weeks ago for UTI. Patient with history of renal colic and states similar symptoms. Exam: Bilateral CVA tenderness with mild suprapubic tenderness. No vaginal discharge or bleeding mild excoriation to bilateral labia majora Plan: Labs, urine, IV fluids, antiemetics, morphine, abdominal kidney ultrasound . Patient had CT done December 16 01/03/19 14:01 Laboratory Tests 02/28/17 01/03/19 01/03/19 16:00 11:48 11:48 WBC 7.9 Hgb 12.5 Hct 36.5 Neutrophils % 70.6 Sodium 133 L Potassium 3.8 Chloride 94 L Carbon Dioxide 30 Anion Gap 9 BUN 8.2 Creatinine 1.1 Calcium 9.1 Total Bilirubin 0.6 AST 13 L ALT 12 L Alkaline Phosphatase 67 Total Protein 7.5 Albumin 4.2 Lipase 70 L TSH 62.70 H D Urine Blood Urine Nitrite Urine Bilirubin Urine Urobilinogen Ur Leukocyte Esterase Urine WBC (Auto) Urine RBC (Auto) Urine Casts (Auto) U Epithel Cells (Auto) Urine Bacteria (Auto) Urine Yeast (Auto) 01/03/19 11:48 WBC Hgb Hct Neutrophils % Sodium Potassium Chloride Carbon Dioxide Anion Gap BUN Creatinine Calcium Total Bilirubin AST ALT Alkaline Phosphatase Total Protein Albumin Lipase TSH Urine Blood 2+ H Urine Nitrite Negative Urine Bilirubin Negative Urine Urobilinogen 0.2 Ur Leukocyte Esterase Negative Urine WBC (Auto) 1.0 Urine RBC (Auto) 7.6 Urine Casts (Auto) 1.10 U Epithel Cells (Auto) 1.5 Urine Bacteria (Auto) 16.4 Urine Yeast (Auto) None seen Ultrasound shows normal right kidney with no evidence of hydronephrosis , nephrolithiasis or acute pathology. Markedly limited evaluation of the left kidney. Clinical correlation and CT follow-up is recommended. Patient with glucose of 71. Patient ordered for D5NS and is stating she is still having bilateral flank pain and vaginal burning. Patient ordered for an additional dose of morphine. 01/03/19 15:26 Patient states second dose of morphine did alleviate discomfort. Patient has attempted to go to ultrasound x 1 but unable to hold a full bladder and was sent back to the ER. Patient's TSH 37 . patient states unsure of last time she had her TSH and thyroid levels checked but states takes her Synthroid medication daily as prescribed. Pt currently at ultrasound and will go directly to CT *DC/Admit/Observation/Transfer Diagnosis at time of Disposition: Flank pain - Discharge Dispostion Disposition: AGAINST MEDICAL ADVICE Condition at time of disposition: Fair - Referrals Referrals: Yony Joel MD [Primary Care Provider] - - Patient Instructions - Post Discharge Activity
--- NOTE | 2019-01-03 16:09 | PDOC ---
*Physical Exam - Vital Signs Last Vital Signs Temp Pulse Resp BP Pulse Ox 98 F 79 18 124/86 99 01/03/19 11:06 01/03/19 11:06 01/03/19 11:06 01/03/19 11:06 01/03/19 11:06 ED Treatment Course - LABORATORY CBC & Chemistry Diagram: 01/03/19 11:48 01/03/19 11:48 - ADDITIONAL ORDERS Additional order review: Laboratory Results 01/03/19 01/03/19 11:48 11:48 Sodium 133 L Potassium 3.8 Chloride 94 L Carbon Dioxide 30 Anion Gap 9 BUN 8.2 Creatinine 1.1 Est GFR (CKD-EPI)AfAm 68.27 Est GFR (CKD-EPI)NonAf 58.91 Random Glucose 82 Calcium 9.1 Total Bilirubin 0.6 AST 13 L ALT 12 L Alkaline Phosphatase 67 Total Protein 7.5 Albumin 4.2 Lipase 70 L TSH 37.00 H Urine Color Yellow Urine Appearance Clear Urine pH 7.0 Ur Specific [place] 1.010 Urine Protein Negative Urine Glucose (UA) Negative Urine Ketones Negative Urine Blood 2+ H Urine Nitrite Negative Urine Bilirubin Negative Urine Urobilinogen 0.2 Ur Leukocyte Esterase Negative Urine WBC (Auto) 1.0 Urine RBC (Auto) 7.6 Urine Casts (Auto) 1.10 U Epithel Cells (Auto) 1.5 Urine Bacteria (Auto) 16.4 Urine Yeast (Auto) None seen 01/03/19 11:48 RBC 3.85 MCV 94.8 MCHC 34.2 RDW 13.9 MPV 8.3 Neutrophils % 70.6 Lymphocytes % 19.2 D Monocytes % 7.8 Eosinophils % 1.8 Basophils % 0.6 - Medications Given in the ED: ED Medications Discontinued Medications Generic Name Dose Route Start Last Admin Trade Name Freq PRN Reason Stop Dose Admin Sodium Chloride 1,000 mls @ 1,000 mls/hr 01/03/19 11:31 01/03/19 12:00 Normal Saline - IV 01/03/19 12:30 1,000 mls/hr ASDIR STA Administration Dextrose/Sodium Chloride 1,000 mls @ 1,000 mls/hr 01/03/19 13:56 01/03/19 13: 59 D5-Ns - IV 01/03/19 14:55 1,000 mls/hr ONCE ONE Administration Morphine Sulfate 4 mg 01/03/19 11:31 01/03/19 11:59 Morphine Injection - IVPUSH 01/03/19 11:32 4 mg ONCE ONE Administration Morphine Sulfate 4 mg 01/03/19 13:56 01/03/19 14:19 Morphine Injection - IVPUSH 01/03/19 13:57 4 mg ONCE ONE Administration Ondansetron HCl 4 mg 01/03/19 11:31 01/03/19 12:00 Zofran Injection IVPUSH 01/03/19 11:32 4 mg ONCE ONE Administration Progress Note - Progress Note Progress Note: Received signout from nurse practitioner Jose G. Briefly this is a 48-year-old woman presents emergency department for evaluation of bilateral flank pain with some dysuria and vaginal burning with urination. Patient finished an outpatient course of antibiotics. Urinalysis is not suggestive of infection but there was blood in the urine. Laboratory testing notable for an elevated TSH at 37 for which patient is currently taking Synthroid. Renal ultrasound revealed normal right kidney but poor visualization of the left kidney. Patient is currently pending pelvic ultrasound and spiral CT Medical Decision Making - Medical Decision Making 01/03/19 17:39 Ultrasound of the bladder/pelvis as read by Dr. Tamez: Morphologically normal urinary bladder with no significant post void residual. CAT scan read is still pending. Patient expressed displeasure and having to wait for CAT scan read. At this time patient is requesting to leave AGAINST MEDICAL ADVICE. The patient has requested to leave the ED against medical advice. Pt did not want repeat VS, with initial spO2 88% noted, refused CXR. The patient reason(s) for leaving include, but are not limited to, the following : He did not want to wait for results and thought she was getting suboptimal care given. Pt was made aware about the logistics and movement and care of the emergency department, with results still pending. I believe this patient is of sound mind and competent to refuse medical care. The patient is responding and asking questions appropriately. The patient is oriented to person, place and time. The patient is not psychotic, delusional, suicidal, homicidal or hallucinating. The patient demonstrates a normal mental capacity to make decisions regarding their healthcare. The patient is clinically sober and does not appear to be under the influence of any illicit drugs at this time. The patient has been advised of the risks, in layman terms, of leaving AMA which include, but are not limited to: severe infection, dehydration, renal failure, severe permanent disability, loss of current lifestyle, delay in diagnosis and . Alternatives have been offered - the patient remains steadfast in their wish to leave. will have to call back with results of CT if abnormal, callback request made through the EMR. The patient has been advised that should they change their mind they are welcome to return to this hospital, or any other, at any time. The patient understands that in no way does an AMA discharge mean that I do not want them to have the best medical care available. To this end, I have provided appropriate prescriptions, referrals, and discharge instructions. The patient did sign AMA paperwork. The above discussion was witnessed by another member of staff, ANNIE Nayak. *DC/Admit/Observation/Transfer Diagnosis at time of Disposition: Flank pain - Discharge Dispostion Disposition: AGAINST MEDICAL ADVICE Condition at time of disposition: Fair - Referrals Referrals: Yony Joel MD [Primary Care Provider] - - Patient Instructions - Post Discharge Activity
== END 2019-01-03 17:18 | disposition left against medical advice (07) ==
LOC: JER 11:03
PROC: 3E0337Z Introduction of Electrolytic and Water Balance Substance into Peripheral Vein, Percutaneous Approach (ICD-10-PCS; principal; 2019-01-03)
PROC: 3E033NZ Introduction of Analgesics, Hypnotics, Sedatives into Peripheral Vein, Percutaneous Approach (ICD-10-PCS; 2019-01-03)
PROC: 3E033NZ Introduction of Analgesics, Hypnotics, Sedatives into Peripheral Vein, Percutaneous Approach (ICD-10-PCS; 2019-01-03)
PROC: 3E033GC Introduction of Other Therapeutic Substance into Peripheral Vein, Percutaneous Approach (ICD-10-PCS; 2019-01-03)
DX: R10.9 Unspecified abdominal pain (principal); Z87.440 Personal history of urinary (tract) infections; Z87.442 Personal history of urinary calculi
CPT/HCPCS: 36415; 74176-TC; 76775-TC; 76856-TC; 80053; 81003; 83690; 84439; 84443; 84479; 84481; 85025; 87086; 96361; 96374; 96375; 96376; 99284-25; J7030

== ENCOUNTER 2019-01-22 10:26 | Emergency (ER) | payer OTHER ==
[2019-01-22 10:35] VITALS: BP 131/78; PULSE 87; TEMP 98.3; BMI 18.8
[2019-01-22] MEDS ORDERED: POLYETHYLENE GLYCOL 3350 119 GM BTL PO ONE (12:24)
[2019-01-22] MEDS ORDERED: SODIUM CHLORIDE 0.9% 500 ML INFUS.BAG IV ONE (12:24)
[2019-01-22] MEDS ORDERED: ONDANSETRON 4 MG/2 ML VIAL IVPUSH ONE (12:24)
[2019-01-22] MEDS ORDERED: ACETAMINOPHEN 1000 MG/100 ML VIAL (NON FORMULARY) IVPB ONE (12:24)
--- NOTE | 2019-01-22 12:31 | PDOC ---
History of Present Illness - General Chief Complaint: Rectal Bleed Stated Complaint: RECTAL BLEEDING Time Seen by Provider: 01/22/19 11:10 - History of Present Illness Initial Comments: 01/22/19 12:26 48y/o F hx of COPD, recurrent UTI's, anxiety, hypothyroidsim, HLD and currently on methadone program, presents ot the Ed with 1 day of rectal bleeding. she has been having chronic abdominal pain and constipation for the last 4-5 months. She was recently seen by GI for a colonoscopy which could not be carried out because the doctor stated "she was impacted". she has had diffuse abdominal pain , 10/10 in severity, accompanied by nausea and non-bloody, non-bilious emesis. Her last bowel movement was last night where she passed hard stool pellets and bright red blood per rectum. She states that she wast old that he had a "tear in rectum". she endorses rectal pain, dysuria, hematuria. She denies fevers/ chills/diarrhea. She has lost approximately 30 lbs over the last 4 months 01/22/19 12:31 Past History - Past Medical History Allergies/Adverse Reactions: Allergies Allergy/AdvReac Type Severity Reaction Status Date / Time cephalexin monohydrate Allergy Vomiting Verified 01/22/19 10:35 [From Keflex] erythromycin base Allergy Vomiting Verified 01/22/19 10:35 Penicillins Allergy Vomiting Verified 01/22/19 10:35 Sulfa (Sulfonamide Allergy Vomiting Verified 01/22/19 10:35 Antibiotics) ibuprofen AdvReac Severe Vomiting Verified 01/22/19 10:35 ALEVE AdvReac Severe Vomiting Uncoded 01/22/19 10:35 ASPIRIN AdvReac Severe Vomiting Uncoded 01/22/19 10:35 Home Medications: Ambulatory Orders Alprazolam 1 mg PO QID PRN 03/26/16 Levothyroxine [Synthroid -] 100 mcg PO DAILY 03/26/16 Methadone [Dolophine -] 90 mg PO DAILY 03/26/16 Oxycodone HCl/Acetaminophen [Percocet 5-325 mg Tablet] 1 - 2 tab PO Q6H PRN #30 tab MDD 8 03/27/16 Ciprofloxacin HCl [Cipro] 500 mg PO BID #13 tablet 12/16/18 Ondansetron [Zofran Odt -] 4 mg SL TID #9 od.tablet 12/16/18 Phenazopyridine HCl [Pyridium] 200 mg PO TID #6 tablet 12/16/18 Anemia: Yes (IN THE PAST 10 YRS AGO) Cardiac Disorders: No CVA: No COPD: Yes (EMPHYSEMA) Diabetes: No GI Disorders: No Disorders: No HTN: No Hypercholesterolemia: Yes Kidney Stones: Yes Liver Disease: No Psychiatric Problems: Yes (ANXIETY) Seizures: Yes (CHILDHOOD THEN GREW OUT OF) Thyroid Disease: Yes - Surgical History Abdominal Surgery: No Appendectomy: No Cardiac Surgery: No Cholecystectomy: Yes (gALL BLADDER) Lung Surgery: No Neurologic Surgery: No Orthopedic Surgery: No - Immunization History Immunization Up to Date: Yes - Psycho Social/Smoking Cessation Hx Smoking History: Current every day smoker Have you smoked in the past 12 months: Yes Number of Cigarettes Smoked Daily: 20 Information on smoking cessation initiated: Yes 'Breaking Loose' booklet given: 12/21/15 Hx Alcohol Use: No Drug/Substance Use Hx: No Substance Use Type: None Hx Substance Use Treatment: No Review of Systems - Review of Systems Constitutional: No: Chills, Fever HEENTM: No: Eye Pain, Blurred Vision Respiratory: No: Cough, Shortness of Breath Cardiac (ROS): No: Chest Pain ABD/GI: Yes: Symptoms Reported : Yes: Symptoms Reported Musculoskeletal: Yes: Back Pain Integumentary: No: Bruising, Change in Color Neurological: Yes: Headache Psychiatric: Yes: Anxiety *Physical Exam - Vital Signs Last Vital Signs Temp Pulse Resp BP Pulse Ox 98.3 F 87 18 131/78 99 01/22/19 10:32 01/22/19 10:32 01/22/19 10:32 01/22/19 10:32 01/22/19 11:15 - Physical Exam General Appearance: Yes: Appropriately Dressed, Thin, Other (sunken eyes and temporal wasting) HEENT: positive: Normal Voice. negative: Scleral Icterus (R), Scleral Icterus ( L) Neck: positive: Trachea midline, Supple Respiratory/Chest: positive: Lungs Clear, Normal Breath Sounds. negative: Chest Tender, Respiratory Distress Cardiovascular: positive: Regular Rhythm, Regular Rate, S1, S2. negative: Edema , JVD Gastrointestinal/Abdominal: positive: Normal Bowel Sounds, Flat, Soft, Tenderness. negative: Guarding, Hernia, Mass Musculoskeletal: positive: Normal Inspection, CVA Tenderness, CVA Tenderness (L) Extremity: positive: Normal Capillary Refill, Normal Inspection, Normal Range of Motion. negative: Tender Integumentary: positive: Normal Color, Dry, Warm Neurologic: positive: Fully Oriented, Alert, Normal Mood/Affect ED Treatment Course - LABORATORY CBC & Chemistry Diagram: 01/22/19 13:00 01/22/19 13:00 Medical Decision Making - Medical Decision Making 01/22/19 12:34 48y/o F hx of COPD, recurrent UTI's, anxiety, hypothyroidism, HLD and currently on methadone program, presents ot the Ed with 1 day of rectal bleeding. lab/meds/imaging -cbc, cmp, ua, urine culture, stool for occult meds: iv normal saline, miralax, tylenol 01/22/19 13:03 -Pt refusing rectal exam and stool for occult unless she gets pain meds. she earlier reported having her last bowel movement 2 weeks ago, however, showed me pictures on her phone of bowel movement with hard stool pellets yesterday and bright red blood in the toilet bowl - 01/22/19 13:[address] abdomen and pelvis from 01/04 showed no evidence of urinary tract calculi, mass lesions or uropathy retained fecal retentiion with no acute pathology within the abdomen/pelvis. 01/22/19 14:11 Pt eloped before she could be reevaluated. Discharge - Follow up/Referral Referrals: Yony Joel MD [Primary Care Provider] - - Patient Discharge Instructions - Post Discharge Activity
--- NOTE | 2019-01-22 12:35 | PDOC ---
Attending Attestation - Resident Resident Name: Fay Terry - ED Attending Attestation I have performed the following: I have examined & evaluated the patient, The case was reviewed & discussed with the resident, I agree w/resident's findings & plan, Exceptions are as noted - HPI HPI: 01/22/19 13:02 48y F hx of RA, kidney stones, multiple UTIs, rectal fissure, on methadone 90mg dily presesnts with complaint of abdomminal pain, constipation and rectal bleeding. Pt notes she has had abd discomfort for several months, but yesterday , she feels a bit more abd pain and had an episoe of rectal bleeding that was red in color. denies any diarrhea, melenea. pt also endorses nausea/vomiting that is nbnb. denies any fever/chills, cp, ob, back pain. pt notes being evaluated for tihs in the past, has had 2CT abds in the past 2 monhs, last one being 20 days ago. Pt also has seen GI for her constipation and was referred to smeone else On exam - pt no acute disterss thin/chechectic appearing pulm cta b/l abd soft, no focal tenderness card rrr, no mrg pt refuses rectal exam suspect her sympoms may be secondary to opiod induced constipation with potential for rexacerbation of rectal fizzure - but unabl to assess pt as she is declining rectal exam. - Physicial Exam PE: 01/22/19 14:09 see above - Medical Decision Making 01/22/19 14:09 Pt eloped prior to reassesment
[2019-01-22] MEDS ORDERED: Methylnaltrexone Bromide 12 MG/0.6 ML KIT SQ SCH ×2 (12:45→14:00)
[2019-01-22 13:10] LABS: EPI CELLS 2.9 /HPF (0-5/HPF); HYALINE CASTS 2 /lpf (0-8); PH,URINE 6.5 (5.0-8.0); URINE APPEARANCE CLEAR; URINE BILIRUBIN NEGATIVE (NEGATIVE); URINE COLOR YELLOW; URINE GLUCOSE (UA) NEGATIVE (NEGATIVE); URINE KETONE NEGATIVE (NEGATIVE); URINE LEUK ESTERASE NEGATIVE (NEGATIVE); URINE NITRITE NEGATIVE (NEGATIVE); URINE PROTEIN NEGATIVE (NEGATIVE); URINE WBC 0 /hpf (0-5)
[2019-01-22] MEDS ORDERED: ACETAMINOPHEN INJECTION 100 ML IVPB ONE (13:22)
[2019-01-22] MEDS ORDERED: ONDANSETRON 4 MG/2 ML VIAL ONE (13:22)
[2019-01-22 13:30] LABS: EOS % 2.1 % (0-4.5); HEMATOCRIT 36.6 % (32.4-45.2); HEMOGLOBIN 12.2 GM/dL (10.7-15.3); LYMPH % 31.8 % (8-40); MCH 32.4 pg (25.7-33.7); MCHC 33.3 g/dl (32.0-36.0); MONO % 8.8 % (3.8-10.2); NEUT % 56.3 % (42.8-82.8); PLATELET COUNT 231 K/MM3 (134-434); RBC 3.78 M/mm3 (3.60-5.2); RDW 14.6 % (11.6-15.6); WHITE BLOOD COUNT 7.8 K/mm3 (4.0-10.0)
[2019-01-22 13:52] LABS: BILIRUBIN,TOTAL 0.4 mg/dL (0.2-1); BLOOD UREA NITROGEN 7.2 mg/dL (7-18); POTASSIUM 4.2 mmol/L (3.5-5.1)
[2019-01-22 14:45] LABS: URINE RBC 30.6 /hpf (0-4)
[2019-01-22 14:46] LABS: YEAST NONE SEEN (NEGATIVE)
== END 2019-01-22 14:20 | disposition left against medical advice (07) ==
LOC: JER 10:26
PROC: 3E033NZ Introduction of Analgesics, Hypnotics, Sedatives into Peripheral Vein, Percutaneous Approach (ICD-10-PCS; principal; 2019-01-22)
PROC: 3E033GC Introduction of Other Therapeutic Substance into Peripheral Vein, Percutaneous Approach (ICD-10-PCS; 2019-01-22)
DX: K62.5 Hemorrhage of anus and rectum (principal); K59.09 Other constipation; J44.9 Chronic obstructive pulmonary disease, unspecified; E03.9 Hypothyroidism, unspecified; E78.5 Hyperlipidemia, unspecified; F41.8 Other specified anxiety disorders; F11.20 Opioid dependence, uncomplicated; Z87.440 Personal history of urinary (tract) infections; Z88.0 Allergy status to penicillin; Z88.1 Allergy status to other antibiotic agents; Z88.6 Allergy status to analgesic agent; Z88.2 Allergy status to sulfonamides
CPT/HCPCS: 36415; 80053; 81003; 84703; 85025; 87086; 99283-25; J0131

== ENCOUNTER 2019-01-28 17:22 | Emergency (ER) | payer OTHER ==
[2019-01-28 17:27] VITALS: BMI 18.2
--- NOTE | 2019-01-28 17:29 | PDOC ---
Rapid Medical Evaluation Time Seen by Provider: 01/28/19 17:23 Medical Evaluation: Allergies Allergy/AdvReac Type Severity Reaction Status Date / Time cephalexin monohydrate Allergy Vomiting Verified 01/22/19 10:35 [From Keflex] erythromycin base Allergy Vomiting Verified 01/22/19 10:35 Penicillins Allergy Vomiting Verified 01/22/19 10:35 Sulfa (Sulfonamide Allergy Vomiting Verified 01/22/19 10:35 Antibiotics) ibuprofen AdvReac Severe Vomiting Verified 01/22/19 10:35 ALEVE AdvReac Severe Vomiting Uncoded 01/22/19 10:35 ASPIRIN AdvReac Severe Vomiting Uncoded 01/22/19 10:35 01/28/19 17:24 CC: dysuria and rectal bleeding. Pt reports rectal tear during BM. PE: suprapubic tenderness. Right CVAT. Ucx negative over last month. Orders: labs, urine, NS Patient will proceed to ER for further evaluation. 01/28/19 17:28 Discharge Disposition - Diagnosis Flank pain - Referrals - Patient Instructions - Post Discharge Activity
[2019-01-28 17:59] LABS: BASO % 0.8 % (0-2.0); EOS % 2.2 % (0-4.5); HEMATOCRIT 37.1 % (32.4-45.2); HEMOGLOBIN 12.5 GM/dL (10.7-15.3); LYMPH % 17.6 % (8-40); MCH 32.4 pg (25.7-33.7); MCHC 33.8 g/dl (32.0-36.0); MEAN CELL VOLUME 95.9 fl (80-96); MEAN PLT VOLUME 8.8 fl (7.5-11.1); MONO % 8.3 % (3.8-10.2); NEUT % 71.1 % (42.8-82.8); PLATELET COUNT 258 K/MM3 (134-434); RBC 3.86 M/mm3 (3.60-5.2); RDW 14.3 % (11.6-15.6); WHITE BLOOD COUNT 7.7 K/mm3 (4.0-10.0)
[2019-01-28 18:04] LABS: EPI CELLS 6.6 /HPF (0-5/HPF); HYALINE CASTS 5 /lpf (0-8); URINE APPEARANCE CLEAR; URINE BACTERIA 180.5 /hpf (NEGATIVE); URINE BILIRUBIN NEGATIVE (NEGATIVE); URINE COLOR YELLOW; URINE GLUCOSE (UA) NEGATIVE (NEGATIVE); URINE KETONE NEGATIVE (NEGATIVE); URINE LEUK ESTERASE TRACE (NEGATIVE); URINE NITRITE NEGATIVE (NEGATIVE); URINE PROTEIN NEGATIVE (NEGATIVE); URINE RBC 47 /hpf (0-4); URINE WBC 1 /hpf (0-5)
[2019-01-28 18:27] LABS: ALBUMIN 4.1 g/dl (3.4-5.0); BILIRUBIN,TOTAL 0.4 mg/dL (0.2-1); BLOOD UREA NITROGEN 8.8 mg/dL (7-18); CALCIUM 9.4 mg/dL (8.5-10.1); CREATININE 0.9 mg/dL (0.55-1.3); POTASSIUM 5.1 mmol/L (3.5-5.1); TOT PROT 7.2 g/dl (6.4-8.2)
--- NOTE | 2019-01-28 19:02 | PDOC ---
History of Present Illness - General Chief Complaint: Urinary Problem Stated Complaint: SENT BY DOCTOR Time Seen by Provider: 01/28/19 17:23 History Source: Patient Exam Limitations: No Limitations Past History - Past Medical History Allergies/Adverse Reactions: Allergies Allergy/AdvReac Type Severity Reaction Status Date / Time cephalexin monohydrate Allergy Vomiting Verified 01/28/19 17:27 [From Keflex] erythromycin base Allergy Vomiting Verified 01/28/19 17:27 Penicillins Allergy Vomiting Verified 01/28/19 17:27 Sulfa (Sulfonamide Allergy Vomiting Verified 01/28/19 17:27 Antibiotics) ibuprofen AdvReac Severe Vomiting Verified 01/28/19 17:27 ALEVE AdvReac Severe Vomiting Uncoded 01/28/19 17:27 ASPIRIN AdvReac Severe Vomiting Uncoded 01/28/19 17:27 Home Medications: Ambulatory Orders Alprazolam 1 mg PO QID PRN 03/26/16 Levothyroxine [Synthroid -] 100 mcg PO DAILY 03/26/16 Methadone [Dolophine -] 90 mg PO DAILY 03/26/16 Oxycodone HCl/Acetaminophen [Percocet 5-325 mg Tablet] 1 - 2 tab PO Q6H PRN #30 tab MDD 8 03/27/16 Ciprofloxacin HCl [Cipro] 500 mg PO BID #13 tablet 12/16/18 Ondansetron [Zofran Odt -] 4 mg SL TID #9 od.tablet 12/16/18 Phenazopyridine HCl [Pyridium] 200 mg PO TID #6 tablet 12/16/18 Levothyroxine [Synthroid -] 100 mcg PO DAILY #30 tablet 01/28/19 Anemia: Yes (IN THE PAST 10 YRS AGO) Cardiac Disorders: No CVA: No COPD: Yes (EMPHYSEMA) Diabetes: No GI Disorders: No Disorders: No HTN: No Hypercholesterolemia: Yes Kidney Stones: Yes Liver Disease: No Psychiatric Problems: Yes (ANXIETY) Seizures: Yes (CHILDHOOD THEN GREW OUT OF) Thyroid Disease: Yes Other medical history: chronic pain on methadone, rectal tair, constipation - Surgical History Abdominal Surgery: No Appendectomy: No Cardiac Surgery: No Cholecystectomy: Yes (gALL BLADDER) Lung Surgery: No Neurologic Surgery: No Orthopedic Surgery: No - Immunization History Immunization Up to Date: Yes - Psycho Social/Smoking Cessation Hx Smoking History: Current every day smoker Have you smoked in the past 12 months: Yes Number of Cigarettes Smoked Daily: 10 Information on smoking cessation initiated: No 'Breaking Loose' booklet given: 12/21/15 Hx Alcohol Use: No Drug/Substance Use Hx: No Substance Use Type: None Hx Substance Use Treatment: No *Physical Exam - Vital Signs Last Vital Signs Temp Pulse Resp BP Pulse Ox 98.4 F 93 H 19 103/68 99 01/28/19 17:24 01/28/19 17:24 01/28/19 17:24 01/28/19 17:24 01/28/19 17:24 - Physical Exam General Appearance: No: Apparent Distress Respiratory/Chest: positive: Lungs Clear, Normal Breath Sounds. negative: Respiratory Distress Cardiovascular: positive: Regular Rhythm, Regular Rate, S1, S2. negative: Murmur Female Pelvic Exam: positive: normal external exam Gastrointestinal/Abdominal: positive: Normal Bowel Sounds, Soft. negative: Tender, Distended, Guarding, Rebound Rectal Exam: positive: other (no obvious external rectal tears noted). negative : hemorrhoids Neurologic: positive: Alert, Normal Mood/Affect ED Treatment Course - LABORATORY CBC & Chemistry Diagram: 01/28/19 17:46 01/28/19 17:46 - ADDITIONAL ORDERS Additional order review: Laboratory Results 01/28/19 01/28/19 17:46 17:46 Sodium 132 L Potassium 5.1 Chloride 98 Carbon Dioxide 27 Anion Gap 6 L BUN 8.8 Creatinine 0.9 Est GFR (CKD-EPI)AfAm 87.02 Est GFR (CKD-EPI)NonAf 75.08 Random Glucose 95 Calcium 9.4 Total Bilirubin 0.4 AST 12 L ALT 18 Alkaline Phosphatase 65 Total Protein 7.2 Albumin 4.1 Urine Color [place] Urine Appearance Clear Urine pH 6.0 Ur Specific [place] 1.017 Urine Protein Negative Urine Glucose (UA) Negative Urine Ketones Negative Urine Blood 3+ H Urine Nitrite Negative Urine Bilirubin Negative Urine Urobilinogen 1.0 Ur Leukocyte Esterase Trace Urine WBC (Auto) 1 Urine RBC (Auto) 47 Urine Casts (Auto) 5 U Epithel Cells (Auto) 6.6 Urine Bacteria (Auto) 180.5 01/28/19 17:46 RBC 3.86 MCV 95.9 MCHC 33.8 RDW 14.3 MPV 8.8 Neutrophils % 71.1 D Lymphocytes % 17.6 D Monocytes % 8.3 Eosinophils % 2.2 Basophils % 0.8 Medical Decision Making - Medical Decision Making 48 y/o F hx of kidney stones, recurrent UTI, HLD, anxiety, hypothyroidism, RA, on methadone presents with chronic constipation, chronic bladder/kidney discomfort, chronic hematuria and rectal bleeding from rectal tear; sxs have been going on for the past few months and patient has been in the ED multiple times in past for similar complaints. Patient saw Dr. Ho yesterday and was told to come to ER for evaluation. Patient also seen GI, Dr. Kimbrough, and then Dr. Beauchamp 2-3 weeks ago; states colonoscopy was done as patient with large stool burden. Patient states she has tried multiple stool softeners, including ones that are used for opiates, but nothing works well for her. Mentions the GI doctor prescribed her a $700 medication for her constipation which her insurance does not cover. Denies fever, sob, cp, n/v/d, melena. Patient had CT A/P, bladder and renal US done last month which were negative Current labs unremarkable as well with only trace blood noted Prior urine cultures have all been negative Patient refused digital rectal exam Patient demanding to be admitted to hospital as she is tired of "bouncing around " Case d/w her PCP, Dr. Joel, who believes her sxs may have psychiatric component to it and spoke to a psychiatrist regarding her yesterday; does not feel she needs to be admitted Also d/w GI, Dr. Kimbrough, who states he can see patient in office tomorrow at 10 AM Will also refer to urology for hematuria (patient states she saw a urologist once long ago but unable to recall who it was) 01/28/19 18:58 Discharge - Discharge Information Problems reviewed: Yes Clinical Impression/Diagnosis: Rectal tear, Chronic constipation Hematuria Qualifiers: Hematuria type: unspecified type Qualified Code(s): R31.9 - Hematuria, unspecified Condition: Stable Disposition: HOME - Admission No - Additional Discharge Information Prescriptions: Levothyroxine [Synthroid -] 100 mcg PO DAILY #30 tablet Prescription Drug Monitoring Program (I-STOP) results: I-STOP not reviewed - Follow up/Referral Referrals: Yony Joel MD [Primary Care Provider] - 2 Days Art Kimbrough MD [Staff Physician] - 01/29/19 10:00 Scar Becker MD [Staff Physician] - 2 Days - Patient Discharge Instructions Patient Printed Discharge Instructions: DI for Constipation, DI for Hematuria Additional Instructions: Thank you for choosing [facility]. It was a pleasure taking care of you. Please continue follow-up with your regular doctor regarding your symptoms Please follow-up with GI, Dr. Kimbrough, tomorrow at 10 AM You were also referred to urologist for further evaluation of your symptoms Return to the Emergency Department if your symptoms worsen or persist or have other concerning symptoms. - Post Discharge Activity
[2019-01-28 19:37] VITALS: BP 103/56; PULSE 67; TEMP 98
== END 2019-01-28 19:30 | disposition home or self-care (01) ==
LOC: JER 17:22
DX: K60.2 Anal fissure, unspecified (principal); K59.04 Chronic idiopathic constipation; R31.9 Hematuria, unspecified; J43.9 Emphysema, unspecified; F41.9 Anxiety disorder, unspecified; F17.210 Nicotine dependence, cigarettes, uncomplicated; E78.5 Hyperlipidemia, unspecified; E03.9 Hypothyroidism, unspecified; M06.9 Rheumatoid arthritis, unspecified; Z87.440 Personal history of urinary (tract) infections; Z87.442 Personal history of urinary calculi; Z88.0 Allergy status to penicillin; Z88.8 Allergy status to other drugs, medicaments and biological substances; Z79.891 Long term (current) use of opiate analgesic
CPT/HCPCS: 36415; 80053; 81003; 85025; 87086; 99283-25

== ENCOUNTER 2019-10-20 08:14 | Emergency (ER) | payer OTHER ==
[2019-10-20 08:23] VITALS: TEMP 98.2; BMI 18.2
[2019-10-20] MEDS ORDERED: ACETAMINOPHEN 1000 MG/100 ML VIAL (NON FORMULARY) IVPB ONE (08:45)
[2019-10-20] MEDS ORDERED: ACETAMINOPHEN INJECTION 100 ML IVPB ONE (08:53)
[2019-10-20 08:56] LABS: BASO % 0.7 % (0-2.0); EOS % 1.3 % (0-4.5); HEMATOCRIT 37.4 % (32.4-45.2); HEMOGLOBIN 12.3 GM/dL (10.7-15.3); MCH 33.3 pg (25.7-33.7); MEAN CELL VOLUME 100.8 fl (80-96); MEAN PLT VOLUME 9.3 fl (7.5-11.1); MONO % 8.8 % (3.8-10.2); NEUT % 67.2 % (42.8-82.8); PLATELET COUNT 222 K/MM3 (134-434); RDW 13.2 % (11.6-15.6)
[2019-10-20 09:17] LABS: HCG,QUALITATIVE URINE Negative
[2019-10-20 09:18] LABS: ALBUMIN 4.1 g/dl (3.4-5.0); BILIRUBIN,TOTAL 0.6 mg/dL (0.2-1); BLOOD UREA NITROGEN 9.5 mg/dL (7-18); CALCIUM 9.2 mg/dL (8.5-10.1); CREATININE 1.2 mg/dL (0.55-1.3); POTASSIUM 3.6 mmol/L (3.5-5.1); TOT PROT 7.1 g/dl (6.4-8.2)
[2019-10-20 09:18] LABS: EPI CELLS 35 /uL (0-25.1); HYALINE CASTS 2 /uL (0-3.1); URINE APPEARANCE CLOUDY; URINE BACTERIA 711 /uL (0-1359); URINE BILIRUBIN NEGATIVE (NEGATIVE); URINE COLOR YELLOW; URINE GLUCOSE (UA) NEGATIVE (NEGATIVE); URINE KETONE 1+ (NEGATIVE); URINE LEUK ESTERASE 1+ (NEGATIVE); URINE NITRITE NEGATIVE (NEGATIVE); URINE PROTEIN NEGATIVE (NEGATIVE); URINE RBC 212 /uL (0-23.9); URINE WBC 16 /uL (0-25.8)
[2019-10-20] MEDS ORDERED: SODIUM PHOSPHATE/NA BIPHOS 133 ML ENEMA PR ONE (12:47)
[2019-10-20] MEDS ORDERED: KETOROLAC TROMETHAMINE 30 MG/1 ML VIAL IVPUSH ONE (12:54)
[2019-10-20] MEDS ORDERED: CEFTRIAXONE 1 GM in DEXTROSE 5%-WATER - 100 ML IVPB ONE (13:07)
[2019-10-20] MEDS ORDERED: CEFTRIAXONE 1 GM/50 ML BAG ONE (13:22)
[2019-10-20] MEDS ORDERED: KETOROLAC TROMETHAMINE 30 MG/1 ML VIAL ONE (13:22)
[2019-10-20 15:22] VITALS: BP 110/80; PULSE 82
== END 2019-10-20 15:31 | disposition home or self-care (01) ==
LOC: JER 08:14
PROC: 3E033GC Introduction of Other Therapeutic Substance into Peripheral Vein, Percutaneous Approach (ICD-10-PCS; principal; 2019-10-20)
DX: N12 Tubulo-interstitial nephritis, not specified as acute or chronic (principal); K59.00 Constipation, unspecified
CPT/HCPCS: 36415; 74177-TC; 76830-TC; 80053; 81003; 83690; 84703; 85025; 87086; 96374; 96375; 99285-25; J0131; Q9967

== ENCOUNTER 2019-11-04 15:36 | Inpatient (IN) | payer OTHER ==
--- NOTE | 2019-11-04 15:45 | PDOC ---
Rapid Medical Evaluation Chief Complaint: Pain Time Seen by Provider: 11/04/19 15:40 Medical Evaluation: Allergies Allergy/AdvReac Type Severity Reaction Status Date / Time cephalexin monohydrate Allergy Vomiting Verified 11/04/19 15:41 [From Keflex] erythromycin base Allergy Vomiting Verified 11/04/19 15:41 Penicillins Allergy Vomiting Verified 11/04/19 15:41 Sulfa (Sulfonamide Allergy Vomiting Verified 11/04/19 15:41 Antibiotics) ibuprofen AdvReac Severe Vomiting Verified 11/04/19 15:41 ALEVE AdvReac Severe Vomiting Uncoded 11/04/19 15:41 ASPIRIN AdvReac Severe Vomiting Uncoded 11/04/19 15:41 Vital Signs Temp Pulse Resp BP Pulse Ox 98.3 F 86 18 87/65 L 93 L 11/04/19 15:38 11/04/19 15:38 11/04/19 15:38 11/04/19 15:38 11/04/19 15:38 11/04/19 15:42 I have performed a brief in-person evaluation of this patient. The patient presents with a chief complaint of: persistent constipation and dysuria despite levaquin 10/20/19 (of note, ucx 10/19 neg). Taking miralax but states no BM x 23 days. Reports waking up w/ blood at rectum several nights ago. Of note, CT w/ fecal retention on 10/19. No sig abd pain and no f/c. H/o chronic constipation, COPD, not on oxygen, on methadone, RA Pertinent physical exam findings:hypotensive, sating 93% on RA I have ordered the following:labs, abd XR The patient will proceed to the ED for further evaluation. 11/04/19 15:46 Discharge Disposition - Diagnosis Burning with urination Constipation Qualifiers: Constipation type: unspecified constipation type Qualified Code(s): K59.00 - Constipation, unspecified - Referrals - Patient Instructions - Post Discharge Activity
[2019-11-04 15:50] VITALS: BMI 17.3
[2019-11-04] MEDS ORDERED: SODIUM CHLORIDE 0.9% 500 ML INFUS.BAG IV ONE (16:41)
[2019-11-04] MEDS ORDERED: ACETAMINOPHEN 1000 MG/100 ML VIAL (NON FORMULARY) IVPB ONE (16:41)
--- NOTE | 2019-11-04 16:45 | PDOC ---
History of Present Illness - General Chief Complaint: Pain Stated Complaint: ABD PAIN Time Seen by Provider: 11/04/19 15:40 - History of Present Illness Initial Comments: 11/04/19 16:44 49y/o F hx of COPD, frequent UTIs, anxiety, hypothyroidism, HLD, on methadone, chronic constipation, rectal fissures, presenting today with dysuria and back pain that has not improved since her last visit two weeks ago. Reports that she gets frequent UTIs. She was treated with levaquin and ceftriaxone during her last visit which she states has not improved much. No fever/chills. Mild headache. No chest pain/shortness of breath. Diffuse abdominal pain. No lower extremity swelling. Past History - Medical History Allergies/Adverse Reactions: Allergies Allergy/AdvReac Type Severity Reaction Status Date / Time cephalexin monohydrate Allergy Vomiting Verified 11/04/19 15:41 [From Keflex] erythromycin base Allergy Vomiting Verified 11/04/19 15:41 Penicillins Allergy Vomiting Verified 11/04/19 15:41 Sulfa (Sulfonamide Allergy Vomiting Verified 11/04/19 15:41 Antibiotics) ibuprofen AdvReac Severe Vomiting Verified 11/04/19 15:41 ALEVE AdvReac Severe Vomiting Uncoded 11/04/19 15:41 ASPIRIN AdvReac Severe Vomiting Uncoded 11/04/19 15:41 Home Medications: Ambulatory Orders Alprazolam 1 mg PO QID PRN 03/26/16 Levothyroxine [Synthroid -] 100 mcg PO DAILY 03/26/16 Methadone [Dolophine -] 85 mg PO DAILY 03/26/16 Docusate Sodium [Colace] 100 mg PO DAILY #30 capsule 10/20/19 Polyethylene Glycol 3350 [Miralax (For Bowel Prep) -] 17 gm PO DAILY #1 bottle 10/20/19 Levofloxacin [Levaquin] 500 mg PO DAILY #3 tablet 10/21/19 Anemia: Yes (IN THE PAST 10 YRS AGO) Cardiac Disorders: No CVA: No COPD: Yes (EMPHYSEMA) Diabetes: No GI Disorders: No Disorders: No HTN: No Hypercholesterolemia: Yes Kidney Stones: Yes Liver Disease: No Psychiatric Problems: Yes (ANXIETY) Seizures: Yes (CHILDHOOD THEN GREW OUT OF) Thyroid Disease: Yes - Surgical History Abdominal Surgery: No Appendectomy: No Cardiac Surgery: No Cholecystectomy: Yes (gALL BLADDER) Lung Surgery: No Neurologic Surgery: No Orthopedic Surgery: No - Immunization History Immunization Up to Date: Yes - Psycho-Social/Smoking History Smoking History: Current every day smoker Have you smoked in the past 12 months: Yes Number of Cigarettes Smoked Daily: 10 Information on smoking cessation initiated: No 'Breaking Loose' booklet given: 12/21/15 - Substance Abuse Hx (Audit-C & DAST Scrn) How often the patient has a drink containing alcohol: Never Score: In Men: 4 or > Positive; In Women: 3 or > Positive: 0 Screen Result (Pos requires Nsg. Audit-10AR): Negative Review of Systems - Review of Systems Comments:: GENERAL/CONSTITUTIONAL: No fever or chills. No weakness._ HEAD, EYES, EARS, NOSE AND THROAT: No change in vision. No change in hearing. No sore throat._ CARDIOVASCULAR: No chest pain or shortness of breath_ RESPIRATORY: Denies cough, hemoptysis_ GASTROINTESTINAL: Reports abdominal pain, nausea, vomiting. No nausea, diarrhea or constipation._ GENITOURINARY: Reports dysuria. No frequency, or change in urination._ MUSCULOSKELETAL: Reports generalized pain worse at night. No neck. Reports back pain. SKIN: No rash_ NEUROLOGIC: No headache, vertigo, loss of consciousness, or change in strength/sensation._ ENDOCRINE: No increased thirst. No abnormal weight change_ HEMATOLOGIC/LYMPHATIC: No anemia, easy bleeding, or history of blood clots._ ALLERGIC/IMMUNOLOGIC: No hives or skin allergy._ *Physical Exam - Vital Signs Last Vital Signs Temp Pulse Resp BP Pulse Ox 98.3 F 86 18 87/65 L 93 L 11/04/19 15:38 11/04/19 15:38 11/04/19 15:38 11/04/19 15:38 11/04/19 15:38 - Physical Exam GENERAL: Awake, alert, and oriented to person/place/time, in no acute distress_ HEAD: No signs of trauma, normocephalic, atraumatic _ EYES: PERRLA, EOMI, sclera anicteric, conjunctiva clear_ ENT: Hearing grossly normal, nares patent, oropharynx clear without exudates. No uvular deviation. Moist mucosa_ NECK: Normal ROM, supple, no lymphadenopathy, JVD, or masses_ LUNGS: No distress, speaks in full sentences, clear to auscultation bilaterally _ HEART: Regular rate and rhythm, normal S1 and S2, no murmurs appreciated, peripheral pulses normal and equal bilaterally._ ABDOMEN: Soft, increased tenderness LLQ and RUQ, normoactive bowel sounds. No guarding, no rebound. No masses_ BACK: CVA tenderness bilaterally. EXTREMITIES: Normal inspection, Normal range of motion, no edema. No clubbing or cyanosis_ NEUROLOGICAL: Cranial nerves II through XII grossly intact. Normal speech, normal gait, no focal sensorimotor deficits _ SKIN: Warm, Dry, normal turgor, no rashes or lesions noted_ ED Treatment Course - LABORATORY CBC & Chemistry Diagram: 11/04/19 17:03 11/04/19 17:04 Medical Decision Making - Medical Decision Making 11/04/19 16:45 49F presenting with worsening UTI/pyelo, abdominal discomfort. -labs -urine -fluids -tylenol 11/04/19 18:17 CT abd shows fecal retention and free fluid in the pelvis otherwise no acute intra-abdominal pathology. 11/04/19 18:18 Labs reviewed. Laboratory Tests 11/04/19 11/04/19 11/04/19 17:00 17:03 17:04 WBC 5.9 RBC 3.23 L Hgb 10.9 Hct 32.2 L MCV 99.9 H MCH 33.9 H MCHC 33.9 RDW 13.4 Plt Count 250 MPV 8.4 Absolute Neuts (auto) 3.7 Neutrophils % 63.2 Lymphocytes % 25.5 Monocytes % 8.7 Eosinophils % 2.0 Basophils % 0.6 Nucleated RBC % 0 Sodium 137 Potassium 4.2 Chloride 104 Carbon Dioxide 28 Anion Gap 5 L BUN 8.1 Creatinine 1.1 Est GFR (CKD-EPI)AfAm 67.79 Est GFR (CKD-EPI)NonAf 58.49 Random Glucose 65 L Lactic Acid Calcium 8.6 Total Bilirubin 0.6 AST 14 L ALT 11 L Alkaline Phosphatase 51 Total Protein 6.2 L Albumin 3.5 Lipase 42 L Urine Color [place] Urine Appearance Cloudy Urine pH 5.5 Ur Specific [place] 1.010 Urine Protein 1+ H Urine Glucose (UA) Negative Urine Ketones Negative Urine Blood Trace Urine Nitrite Positive H Urine Bilirubin 2+ H Urine Urobilinogen 1.0 Ur Leukocyte Esterase 1+ H Urine WBC (Auto) 1 Urine RBC (Auto) 91 Urine Casts (Auto) 2 U Epithel Cells (Auto) 16 11/04/19 17:04 WBC RBC Hgb Hct MCV MCH MCHC RDW Plt Count MPV Absolute Neuts (auto) Neutrophils % Lymphocytes % Monocytes % Eosinophils % Basophils % Nucleated RBC % Sodium Potassium Chloride Carbon Dioxide Anion Gap BUN Creatinine Est GFR (CKD-EPI)AfAm Est GFR (CKD-EPI)NonAf Random Glucose Lactic Acid 0.8 Calcium Total Bilirubin AST ALT Alkaline Phosphatase Total Protein Albumin Lipase Urine Color Urine Appearance Urine pH Ur Specific [place] Urine Protein Urine Glucose (UA) Urine Ketones Urine Blood Urine Nitrite Urine Bilirubin Urine Urobilinogen Ur Leukocyte Esterase Urine WBC (Auto) Urine RBC (Auto) Urine Casts (Auto) U Epithel Cells (Auto) 11/04/19 18:36 Pt reassessed. Continued CVA tenderness. Plan to admit for IV abx given failed outpatient PO abx (levaquin). No growth from urine culture at last visit. Will start rocephin. Discharge - Discharge Information Problems reviewed: Yes Clinical Impression/Diagnosis: Burning with urination, Pyelonephritis Constipation Qualifiers: Constipation type: unspecified constipation type Qualified Code(s): K59.00 - Constipation, unspecified Condition: Stable - Admission Yes - Follow up/Referral - Patient Discharge Instructions - Post Discharge Activity
[2019-11-04] MEDS ORDERED: ACETAMINOPHEN INJECTION 100 ML IVPB ONE (16:48)
[2019-11-04 17:10] LABS: BASO % 0.6 % (0-2.0); HEMATOCRIT 32.2 % (32.4-45.2); HEMOGLOBIN 10.9 GM/dL (10.7-15.3); LYMPH % 25.5 % (8-40); MCH 33.9 pg (25.7-33.7); MCHC 33.9 g/dl (32.0-36.0); MEAN CELL VOLUME 99.9 fl (80-96); MEAN PLT VOLUME 8.4 fl (7.5-11.1); MONO % 8.7 % (3.8-10.2); NEUT % 63.2 % (42.8-82.8); PLATELET COUNT 250 K/MM3 (134-434); RBC 3.23 M/mm3 (3.60-5.2); RDW 13.4 % (11.6-15.6); WHITE BLOOD COUNT 5.9 K/mm3 (4.0-10.0)
[2019-11-04 17:31] LABS: EPI CELLS 16 /uL (0-25.1); HYALINE CASTS 2 /uL (0-3.1); PH,URINE 5.5 (5.0-8.0); URINE APPEARANCE CLOUDY; URINE BILIRUBIN 2+ (NEGATIVE); URINE COLOR ORANGE; URINE GLUCOSE (UA) NEGATIVE (NEGATIVE); URINE KETONE NEGATIVE (NEGATIVE); URINE LEUK ESTERASE 1+ (NEGATIVE); URINE NITRITE POSITIVE (NEGATIVE); URINE PROTEIN 1+ (NEGATIVE); URINE RBC 91 /uL (0-23.9); URINE WBC 1 /uL (0-25.8)
[2019-11-04 17:37] LABS: ALBUMIN 3.5 g/dl (3.4-5.0); BILIRUBIN,TOTAL 0.6 mg/dL (0.2-1); BLOOD UREA NITROGEN 8.1 mg/dL (7-18); CALCIUM 8.6 mg/dL (8.5-10.1); CREATININE 1.1 mg/dL (0.55-1.3); POTASSIUM 4.2 mmol/L (3.5-5.1); TOT PROT 6.2 g/dl (6.4-8.2)
--- NOTE | 2019-11-04 18:03 | PDOC ---
Documentation entered by Tabatha Arroyo SCRIBE, acting as scribe for Vikash Frankel MD. Vikash Frankel MD: This documentation has been prepared by the Dina pizano Adrianna, SCRIBE, under my direction and personally reviewed by me in its entirety. I confirm that the documentation accurately reflects all work, treatment, procedures, and medical decision making performed by me. Attending Attestation - Resident Resident Name: Tacos Link - ED Attending Attestation I have performed the following: I have examined & evaluated the patient, The case was reviewed & discussed with the resident, I agree w/resident's findings & plan, Exceptions are as noted - HPI HPI: The patient is a 49 year old female, with a significant PMH of COPD, RA, frequent UTIs, anxiety, hypothyroidism, HLD, on methadone, chronic constipation, anal fissures, kidney stones, who presents with abdominal pain and dysuria. Patient complains of continued dysuria and lower abdominal pain since her recent ER visit 2 weeks ago, and notes no relief with levaquin. She endorses associated flank pain and remains constipated at this time (had tried miralax without any relief). Allergies: cephalexin monohydrate, erythromycin base, Penicillins, Sulfa (Sulfonamide Antibiotics), ibuprofen, aleve, aspirin Surgical History: cholecystectomy Social History: Current everyday smoker (1/2 ppd) PCP: Dr. Joel - Physicial Exam PE: See resident exam - Medical Decision Making 11/04/19 18:09 49 F with abdominal pain, flank pain. Suspect severe constipation. Pt also diagnosed with UTI recently. Possible pyelo. - Labs - UA - CTAP Discharge - Discharge Information Problems reviewed: Yes Clinical Impression/Diagnosis: Burning with urination, Pyelonephritis Constipation Qualifiers: Constipation type: unspecified constipation type Qualified Code(s): K59.00 - Constipation, unspecified Condition: Stable - Follow up/Referral - Patient Discharge Instructions - Post Discharge Activity
[2019-11-04] MEDS ORDERED: CEFTRIAXONE 1 GM in DEXTROSE 5%-WATER - 100 ML IVPB ONE (18:35)
[2019-11-04] MEDS ORDERED: CEFTRIAXONE 1 GM/50 ML BAG ONE (19:02)
--- NOTE | 2019-11-04 19:53 | HP ---
Admitting History and Physical - Primary Care Physician PCP: Kellen Joel - Admission Chief Complaint: Dysuria, Flank Pain, Abdominal Pain History of Present Illness: 49 y/o female with a PMHx of COPD, HLD, Hypothyroidism, RA, Anemia, Renal Calculi, Frequent UTIs, Chronic Constipation, Anal Fissures, Methadone Dependent. Who presents to the ED with dysuria flank and lower abdominal pain. Patient was treated 2 weeks ago for pyelonephritis- rx Levaquin. Patient reports completing ABX course with no improvement. Patient denies fever, chills, cough, SOB, CP, palpitations, vomiting, diarrhea. Patient denies recent sick contacts or travel. History Source: Patient Limitations to Obtaining History: No Limitations - Past Medical History Cardiovascular: Yes: Hyperlipdemia Pulmonary: Yes: COPD ...LMP: 02/24/16 Heme/Onc: Yes: Anemia Psych: Yes: Anxiety, Other (PTSD) Rheumatology: Yes: Other (carpal tunnel) Endocrine: Yes: Hypothyroidism - Past Surgical History Past Surgical History: Yes: Cholecystectomy - Smoking History Smoking history: Current every day smoker Have you smoked in the past 12 months: Yes Aproximately how many cigarettes per day: 10 - Alcohol/Substance Use Hx Alcohol Use: No History of Substance Use: reports: None - Social History Usual Living Arrangement: Yes: Alone ADL: Independent History of Recent Travel: No Home Medications - Allergies Allergies/Adverse Reactions: Allergies Allergy/AdvReac Type Severity Reaction Status Date / Time cephalexin monohydrate Allergy Vomiting Verified 11/04/19 15:41 [From Keflex] erythromycin base Allergy Vomiting Verified 11/04/19 15:41 Penicillins Allergy Vomiting Verified 11/04/19 15:41 Sulfa (Sulfonamide Allergy Vomiting Verified 11/04/19 15:41 Antibiotics) ibuprofen AdvReac Severe Vomiting Verified 11/04/19 15:41 ALEVE AdvReac Severe Vomiting Uncoded 11/04/19 15:41 ASPIRIN AdvReac Severe Vomiting Uncoded 11/04/19 15:41 - Home Medications Home Medications: Ambulatory Orders Alprazolam 1 mg PO TID PRN 03/26/16 Levothyroxine [Synthroid -] 100 mcg PO DAILY 03/26/16 Methadone [Dolophine -] 85 mg PO DAILY 03/26/16 Family Medical History Family Hx Cancer: Mother (Lung) Family Hx Congestive Heart Failure: Mother, Father Review of Systems - Review of Systems Constitutional: reports: Malaise, Weakness Eyes: reports: No Symptoms HENT: reports: No Symptoms Neck: reports: No Symptoms Cardiovascular: reports: No Symptoms Respiratory: reports: No Symptoms Gastrointestinal: reports: Constipation Genitourinary: reports: Burning, Discharge Breasts: reports: No Symptoms Reported Musculoskeletal: reports: Back Pain Integumentary: reports: No Symptoms Neurological: reports: No Symptoms Endocrine: reports: No Symptoms Hematology/Lymphatic: reports: No Symptoms Psychiatric: reports: No Symptoms Pain Intensity: 8 Physical Examination Vital Signs: Vital Signs Temperature 98.3 F 11/04/19 15:38 Pulse Rate 70 11/04/19 18:39 Respiratory Rate 18 11/04/19 18:39 Blood Pressure 108/57 L 11/04/19 18:39 O2 Sat by Pulse Oximetry (%) 94 L 11/04/19 18:39 Constitutional: Yes: Mild Distress, Thin Eyes: Yes: Conjunctiva Clear, EOM Intact, PERRL HENT: Yes: Other (Dry Mucous Membranes) Neck: Yes: WNL, Supple, Trachea Midline Cardiovascular: Yes: Regular Rate and Rhythm, S1, S2 Respiratory: Yes: Regular, Diminished Gastrointestinal: Yes: Normal Bowel Sounds, Soft ...Rectal Exam: Yes: Deferred Renal/: No: CVA Tenderness - Left, CVA Tenderness - Right Breast(s): Yes: WNL Musculoskeletal: Yes: Back Pain Extremities: Yes: WNL Edema: No Peripheral Pulses WNL: Yes Neurological: Yes: WNL, Alert, Oriented ...Motor Strength: WNL Psychiatric: Yes: WNL, Alert, Oriented Labs: CBC, BMP 11/04/19 17:03 11/04/19 17:04 Laboratory Results - last 24 hr 11/04/19 11/04/19 11/04/19 17:00 17:03 17:04 WBC 5.9 RBC 3.23 L Hgb 10.9 Hct 32.2 L MCV 99.9 H MCH 33.9 H MCHC 33.9 RDW 13.4 Plt Count 250 MPV 8.4 Absolute Neuts (auto) 3.7 Neutrophils % 63.2 Lymphocytes % 25.5 Monocytes % 8.7 Eosinophils % 2.0 Basophils % 0.6 Nucleated RBC % 0 Sodium 137 Potassium 4.2 Chloride 104 Carbon Dioxide 28 Anion Gap 5 L BUN 8.1 Creatinine 1.1 Est GFR (CKD-EPI)AfAm 67.79 Est GFR (CKD-EPI)NonAf 58.49 POC Glucometer Random Glucose 65 L Lactic Acid Calcium 8.6 Total Bilirubin 0.6 AST 14 L ALT 11 L Alkaline Phosphatase 51 Total Protein 6.2 L Albumin 3.5 Lipase 42 L Urine Color Mclean Urine Appearance Cloudy Urine pH 5.5 Ur Specific [place] 1.010 Urine Protein 1+ H Urine Glucose (UA) Negative Urine Ketones Negative Urine Blood Trace Urine Nitrite Positive H Urine Bilirubin 2+ H Urine Urobilinogen 1.0 Ur Leukocyte Esterase 1+ H Urine WBC (Auto) 1 Urine RBC (Auto) 91 Urine Casts (Auto) 2 U Epithel Cells (Auto) 16 11/04/19 11/04/19 11/04/19 17:04 19:21 21:52 WBC RBC Hgb Hct MCV MCH MCHC RDW Plt Count MPV Absolute Neuts (auto) Neutrophils % Lymphocytes % Monocytes % Eosinophils % Basophils % Nucleated RBC % Sodium Potassium Chloride Carbon Dioxide Anion Gap BUN Creatinine Est GFR (CKD-EPI)AfAm Est GFR (CKD-EPI)NonAf POC Glucometer 163 114 Random Glucose Lactic Acid 0.8 Calcium Total Bilirubin AST ALT Alkaline Phosphatase Total Protein Albumin Lipase Urine Color Urine Appearance Urine pH Ur Specific [place] Urine Protein Urine Glucose (UA) Urine Ketones Urine Blood Urine Nitrite Urine Bilirubin Urine Urobilinogen Ur Leukocyte Esterase Urine WBC (Auto) Urine RBC (Auto) Urine Casts (Auto) U Epithel Cells (Auto) Intake & Output 11/02/19 11/03/19 11/04/19 11/05/19 23:59 23:59 23:59 23:59 Intake Total 150 400 Balance 150 400 Weight 51.71 kg Imaging - Results Chest X-ray: Report Reviewed, Image Reviewed Cat Scan: Report Reviewed, Image Reviewed Problem List - Problems (1) Complicated UTI (urinary tract infection) Code(s): N39.0 - URINARY TRACT INFECTION, SITE NOT SPECIFIED (2) Pyelonephritis Code(s): N12 - TUBULO-INTERSTITIAL NEPHRITIS, NOT SPCF ACUTE OR CHRONIC (3) Constipation Code(s): K59.00 - CONSTIPATION, UNSPECIFIED Qualifiers: Constipation type: unspecified constipation type Qualified Code(s): K59.00 - Constipation, unspecified (4) Anxiety Code(s): F41.9 - ANXIETY DISORDER, UNSPECIFIED (5) HLD (hyperlipidemia) Code(s): E78.5 - HYPERLIPIDEMIA, UNSPECIFIED (6) COPD (chronic obstructive pulmonary disease) Code(s): J44.9 - CHRONIC OBSTRUCTIVE PULMONARY DISEASE, UNSPECIFIED Qualifiers: COPD type: emphysema Emphysema type: unspecified Qualified Code(s): J43.9 - Emphysema, unspecified (7) Hypothyroidism Code(s): E03.9 - HYPOTHYROIDISM, UNSPECIFIED (8) Chronic pain Code(s): G89.29 - OTHER CHRONIC PAIN Qualifiers: Chronic pain type: chronic pain syndrome Qualified Code(s): G89.4 - Chronic pain syndrome (9) Chronic constipation Code(s): K59.09 - OTHER CONSTIPATION (10) Methadone dependence Code(s): F11.20 - OPIOID DEPENDENCE, UNCOMPLICATED (11) Encounter for screening laboratory testing for COVID-19 virus Code(s): Z11.59 - ENCOUNTER FOR SCREENING FOR OTHER VIRAL DISEASES Assessment/Plan 49 y/o female with a PMHx of COPD, HLD, Hypothyroidism, RA, Anemia, Renal Calculi, Frequent UTIs, Chronic Constipation, Anal Fissures, Methadone Dependent. Admitted for Pyelonephritis, Complicated UTI for further evaluation of their emergent condition. 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 No evidence of acute pathology. Continue ABX Appreciate ID consult Consider Urology consult if condition worsens Monitor CBC, CMP IVF Ofirmev for pain control Continue Methadone verified with [facility] facility Continue Ativan, prn verified online (ISTOP) Continue Levothyroxine Senna- constipation d/u with GI outpatient Albuterol MDI FEN- Po fluids as tolerated, replete lytes prn, Low Na Diet DVT ppx- OOB, SCDs, Heparin SQ Dispo: Requires Inpatient Care Visit type - Emergency Visit Emergency Visit: Yes ED Registration Date: 11/04/19 Care time: The patient presented to the Emergency Department on the above date and was hospitalized for further evaluation of their emergent condition. - New Patient This patient is new to me today: Yes Date on this admission: 11/04/19 - Critical Care Critical Care patient: No
[2019-11-04] MEDS: SODIUM CHLORIDE 1,000 ML IV SCH (20:08)
[2019-11-04] MEDS ORDERED: SENNOSIDES 8.6MG TABLET (FP) PO PRN (21:51)
[2019-11-04] MEDS: NICOTINE 14 MG/24 HOURS TOPICAL PATCH TD SCH (22:12)
[2019-11-04] MEDS ORDERED: traMADol HCL 50 MG TABLET PO PRN (22:12)
[2019-11-04] MEDS ORDERED: traMADol HCL 50 MG TABLET ONE (22:30)
[2019-11-05] MEDS ORDERED: ACETAMINOPHEN INJECTION 100 ML IVPB ONE (01:04)
[2019-11-05] MEDS ORDERED: SENNOSIDES 8.6MG TABLET (FP) PO ONE (01:04)
[2019-11-05] MEDS: ACETAMINOPHEN 1000 MG/100 ML VIAL (NON FORMULARY) IVPB PRN ×2 (01:51→21:28)
[2019-11-05] MEDS ORDERED: ALPRAZolam 1 MG TABLET PO PRN (06:13)
[2019-11-05] MEDS: METHADONE HCL 40 MG DISPERSABLE TABLET PO SCH (07:06)
[2019-11-05] MEDS: LEVOTHYROXINE NA 100 MCG TABLET (FP) PO SCH (07:08)
[2019-11-05 07:40] LABS: BASO % 0.5 % (0-2.0); HEMATOCRIT 34.8 % (32.4-45.2); HEMOGLOBIN 11.3 GM/dL (10.7-15.3); LYMPH % 37.3 % (8-40); MCH 32.6 pg (25.7-33.7); MCHC 32.5 g/dl (32.0-36.0); MEAN CELL VOLUME 100.3 fl (80-96); MEAN PLT VOLUME 9.5 fl (7.5-11.1); MONO % 9.5 % (3.8-10.2); NEUT % 49.7 % (42.8-82.8); PLATELET COUNT 266 K/MM3 (134-434); RBC 3.47 M/mm3 (3.60-5.2); RDW 13.3 % (11.6-15.6); WHITE BLOOD COUNT 8.2 K/mm3 (4.0-10.0)
[2019-11-05 08:00] LABS: ALBUMIN 3.5 g/dl (3.4-5.0); BILIRUBIN,TOTAL 0.5 mg/dL (0.2-1); BLOOD UREA NITROGEN 5.8 mg/dL (7-18); CALCIUM 8.3 mg/dL (8.5-10.1); TOT PROT 6.4 g/dl (6.4-8.2)
[2019-11-05] MEDS: NICOTINE 14 MG/24 HOURS TOPICAL PATCH TD SCH (10:29)
--- NOTE | 2019-11-05 11:52 | EKG ---
Test Reason : Blood Pressure : / mmHG Vent. Rate : 061 BPM Atrial Rate : 061 BPM P-R Int : 164 ms QRS Dur : 074 ms QT Int : 430 ms P-R-T Axes : 071 043 068 degrees QTc Int : 432 ms SINUS RHYTHM WITH OCCASIONAL PREMATURE VENTRICULAR COMPLEXES POSSIBLE LEFT ATRIAL ENLARGEMENT SEPTAL INFARCT (CITED ON OR BEFORE 15-FEB-2015) ABNORMAL ECG WHEN COMPARED WITH ECG OF 28-FEB-2017 16:48, PREMATURE VENTRICULAR COMPLEXES ARE NOW PRESENT Confirmed by LOUIS VO MD ([id number]) on 11/05/2019 11:51:59 AM Referred By: Confirmed By:LOUIS VO MD
--- NOTE | 2019-11-05 12:08 | PN ---
Progress Note, Physician Chief Complaint: Abdominal Pain - Current Medication List Current Medications: Active Medications Acetaminophen (Ofirmev Injection -) 1,000 mg IVPB Q6H PRN PRN Reason: PAIN LEVEL 6-10 Stop: 11/05/19 21:51 Last Admin: 11/05/19 01:51 Dose: 1,000 mg Documented by: Alprazolam (Xanax) 1 mg PO TID PRN PRN Reason: ANXIETY Sodium Chloride (Normal Saline -) 1,000 mls @ 75 mls/hr IV ASDIR [facility] Last Admin: 11/04/19 20:08 Dose: 75 mls/hr Documented by: Levothyroxine Sodium (Synthroid -) 100 mcg PO DAILY@0700 [facility] Last Admin: 11/05/19 07:08 Dose: 100 mcg Documented by: Methadone HCl (Dolophine -) 80 mg PO DAILY@0600 [facility] Last Admin: 11/05/19 07:06 Dose: 80 mg Documented by: Nicotine (Nicoderm Patch -) 14 mg TD DAILY [facility] Last Admin: 11/05/19 10:29 Dose: 14 mg Documented by: Polyethylene Glycol (Miralax (For Daily Use) -) 17 gm PO DAILY [facility] Senna (Senna -) 2 tab PO HS [facility] - Objective Vital Signs: Vital Signs Temperature 97.6 F 11/05/19 10:49 Pulse Rate 55 L 11/05/19 10:49 Respiratory Rate 18 11/05/19 10:49 Blood Pressure 97/51 L 11/05/19 10:49 O2 Sat by Pulse Oximetry (%) 95 11/05/19 10:49 Constitutional: Yes: No Distress, Calm, Cachectic Cardiovascular: Yes: Regular Rate and Rhythm Respiratory: Yes: Regular, CTA Bilaterally Gastrointestinal: Yes: Normal Bowel Sounds, Soft, Tenderness (diffuse) Genitourinary: Yes: Other (supra pubic tenderness) Musculoskeletal: Yes: WNL Extremities: Yes: WNL Edema: No Peripheral Pulses WNL: Yes Neurological: Yes: Alert, Oriented Psychiatric: Yes: Alert, Oriented Labs: CBC, BMP 11/05/19 05:50 11/05/19 05:50 Problem List - Problems (1) Constipation Assessment/Plan: -Miralax po tid -Senna 2 tabs HS -Fleets enema x 1 -refused Mag citrate -Relistor 12 mcg daily Problems reviewed: Yes Code(s): K59.00 - CONSTIPATION, UNSPECIFIED Qualifiers: Constipation type: unspecified constipation type Qualified Code(s): K59.00 - Constipation, unspecified (2) Methadone dependence Assessment/Plan: -Continue o/p dose Problems reviewed: Yes Code(s): F11.20 - OPIOID DEPENDENCE, UNCOMPLICATED (3) UTI (urinary tract infection) Assessment/Plan: -ID consult -UC pending -IV abx -CTAP reviewed Problems reviewed: Yes Code(s): N39.0 - URINARY TRACT INFECTION, SITE NOT SPECIFIED Assessment/Plan See problem list
--- NOTE | 2019-11-05 12:13 | PN ---
Progress Note (short form) - Note Progress Note: ID CONSULT DICTATED R/O PYELONEPHRITIS MULTIPLE ANTIBIOTIC ALLERGIES AWAIT C/S EMPIRIC CEFTRIAXONE
[2019-11-05] MEDS ORDERED: POLYETHYLENE GLYCOL 3350 119 GM BTL PO SCH (12:15)
[2019-11-05] MEDS ORDERED: MAGNESIUM CITRATE 300 ML BOTTLE PO ONE (12:56)
[2019-11-05] MEDS ORDERED: CEFTRIAXONE 2 GM/100 ML BAG IVPB ONE (13:34)
[2019-11-05] MEDS: CEFTRIAXONE 2 GM in DEXTROSE 5%-WATER 100 ML IVPB SCH (13:41)
--- NOTE | 2019-11-05 14:44 | CONS ---
DATE OF CONSULTATION: DATE OF DICTATION: 11/05/2019 CHIEF COMPLAINT: The patient is a 49-year-old female with a history of recurrent urinary tract infections, nephrolithiasis, evaluated for urinary tract infection. The patient presented to the hospital with complaints of worsening abdominal pain for the past 2 weeks and worsening dysuria. She had apparently been treated as an outpatient with Levaquin for possible urinary tract infection. She presented to the emergency room where she was in moderate distress secondary to her abdominal pain, dysuria, and flank pain. She reports dysuria as well as suprapubic and flank discomfort. She also reports having constipation for the past 3 weeks. She has had a history of recurrent urinary tract infections. On review of her data from [facility], urine cultures have been consistently negative. She denies any associated fever or chills. She was empirically treated with ceftriaxone. She has a history of multiple antibiotic allergies PAST MEDICAL HISTORY: Positive for recurrent urinary tract infections, COPD, rheumatoid arthritis, hypothyroidism, hyperlipidemia, nephrolithiasis, chronic constipation. ALLERGIES: CEPHALEXIN, ERYTHROMYCIN, PENICILLIN, SULFA. She reports vomiting with these agents. No history of anaphylaxis. She did receive ceftriaxone in the emergency room without adverse reaction. MEDICATIONS: Include ceftriaxone, nicotine, acetaminophen, Xanax, methadone, Synthroid. SOCIAL HISTORY: Positive history of opiate abuse, on methadone. Positive history of tobacco use. LABORATORY DATA: White count 8.2, hematocrit 34.8, platelets 266, creatinine 1.0. Urinalysis: One white cell. Urine culture pending. IMAGING: CAT scan of the abdomen and pelvis negative for acute pathology. Chest x-ray negative. PHYSICAL EXAMINATION: General: She is in moderate distress secondary to abdominal discomfort. Vital Signs: Temperature 97.6, blood pressure 97/51, pulse 55, regular. Respirations 18 per minute. HEENT: Sclerae are anicteric. Cardiovascular: Heart sounds S1, S2. Lungs: Clear. Abdomen: Soft. Mild suprapubic tenderness to palpation. Extremities: Negative for edema. IMPRESSION: 1. Rule out recurrent urinary tract infection. 2. Rule out pyelonephritis. 3. History of multiple antibiotic allergies. Await urine culture results. Obtain blood cultures. Patient has tolerated ceftriaxone, will continue pending sepsis workup. Would consider urology evaluation. Thank you for the kind referral. SIS HOPKINS M.D. KAITLYNN/[id number]
[2019-11-05] MEDS: Methylnaltrexone Bromide 12 MG/0.6 ML KIT SQ SCH (18:09)
[2019-11-05] MEDS ORDERED: traMADol HCL 50 MG TABLET PO ONE (21:26)
[2019-11-05] MEDS: POLYETHYLENE GLYCOL 3350 119 GM BTL PO SCH (21:30)
[2019-11-05] MEDS: SODIUM CHLORIDE 1,000 ML IV SCH (21:30)
[2019-11-05] MEDS ORDERED: SENNOSIDES 8.6MG TABLET (FP) PO SCH (22:00)
[2019-11-06] MEDS ORDERED: PHENAZOPYRIDINE HCL 100 MG TABLET (FP) PO ONE (05:26)
[2019-11-06] MEDS: METHADONE HCL 40 MG DISPERSABLE TABLET PO SCH (05:57)
[2019-11-06] MEDS: POLYETHYLENE GLYCOL 3350 119 GM BTL PO SCH (06:00)
[2019-11-06] MEDS: LEVOTHYROXINE NA 100 MCG TABLET (FP) PO SCH (06:00)
[2019-11-06] MEDS ORDERED: PT OWN MED DRAWER 7, Y5N ONE ×2 (09:27→12:28)
[2019-11-06] MEDS ORDERED: DEXTROSE 5%-WATER 100 ML IVPB ONE (09:27)
[2019-11-06] MEDS: NICOTINE 14 MG/24 HOURS TOPICAL PATCH TD SCH (09:38)
[2019-11-06] MEDS: CEFTRIAXONE 2 GM in DEXTROSE 5%-WATER 100 ML IVPB SCH (09:39)
--- NOTE | 2019-11-06 12:11 | PN ---
Progress Note, Physician Chief Complaint: Abdominal Pain History of Present Illness: NAD Abd pain is improved Had BM last evening Feels burning on urination UA negative UC negative Seen by ID - Current Medication List Current Medications: Active Medications Alprazolam (Xanax) 1 mg PO TID PRN PRN Reason: ANXIETY Last Admin: 11/05/19 21:29 Dose: 1 mg Documented by: Sodium Chloride (Normal Saline -) 1,000 mls @ 75 mls/hr IV ASDIR [facility] Last Admin: 11/05/19 21:30 Dose: 75 mls/hr Documented by: Ceftriaxone Sodium 2 gm/ (Dextrose) 100 mls @ 200 mls/hr IVPB DAILY [facility]; Protocol Last Admin: 11/06/19 09:39 Dose: 200 mls/hr Documented by: Levothyroxine Sodium (Synthroid -) 100 mcg PO DAILY@0700 [facility] Last Admin: 11/06/19 06:00 Dose: 100 mcg Documented by: Methadone HCl (Dolophine -) 80 mg PO DAILY@0600 [facility] Last Admin: 11/06/19 05:57 Dose: 80 mg Documented by: Methylnaltrexone [place] [facility] (Relistor -) 12 mg SQ DAILY [facility] Last Admin: 11/05/19 18:09 Dose: 12 mg Documented by: Nicotine (Nicoderm Patch -) 14 mg TD DAILY [facility] Last Admin: 11/06/19 09:38 Dose: 14 mg Documented by: Polyethylene Glycol (Miralax (For Daily Use) -) 17 gm PO TID [facility] Last Admin: 11/06/19 06:00 Dose: 17 gm Documented by: Senna (Senna -) 2 tab PO HS [facility] Last Admin: 11/05/19 21:30 Dose: 2 tab Documented by: - Objective Vital Signs: Vital Signs Temperature 98.1 F 11/06/19 04:00 Pulse Rate 51 L 11/06/19 04:00 Respiratory Rate 20 11/06/19 04:00 Blood Pressure 105/69 11/06/19 04:00 O2 Sat by Pulse Oximetry (%) 96 11/05/19 21:00 Constitutional: Yes: No Distress, Calm, Cachectic Cardiovascular: Yes: Regular Rate and Rhythm Respiratory: Yes: Regular, CTA Bilaterally Gastrointestinal: Yes: Soft, Hypoactive Bowel Sounds Genitourinary: Yes: WNL Musculoskeletal: Yes: WNL Extremities: Yes: WNL Edema: No Peripheral Pulses WNL: Yes Neurological: Yes: Alert, Oriented Psychiatric: Yes: Alert, Oriented Labs: CBC, BMP 11/05/19 05:50 11/05/19 05:50 Problem List - Problems (1) Constipation Assessment/Plan: -Miralax po tid -Senna 2 tabs HS -Fleets enema x 1 -Colace 300 mg po HS -Relistor 12 mcg today Problems reviewed: Yes Code(s): K59.00 - CONSTIPATION, UNSPECIFIED Qualifiers: Constipation type: unspecified constipation type Qualified Code(s): K59.00 - Constipation, unspecified (2) Methadone dependence Assessment/Plan: -Continue o/p dose Problems reviewed: Yes Code(s): F11.20 - OPIOID DEPENDENCE, UNCOMPLICATED (3) UTI (urinary tract infection) Assessment/Plan: -ID consult -UC negative -Cipro 500 mg po bid -F/U with urology o/p -Pyridium for dysuria -CTAP reviewed Problems reviewed: Yes Code(s): N39.0 - URINARY TRACT INFECTION, SITE NOT SPECIFIED Assessment/Plan See problem list
[2019-11-06] MEDS ORDERED: Methylnaltrexone Bromide 12 MG/0.6 ML KIT SQ SCH (12:36)
[2019-11-06] MEDS: Methylnaltrexone Bromide 12 MG/0.6 ML KIT SQ SCH (12:42)
[2019-11-06 12:54] VITALS: BP 97/50; PULSE 55; TEMP 97.7
== END 2019-11-06 15:21 | disposition home or self-care (01) | DRG 463 ==
LOC: JER 15:36 → JERBED 19:27 → J8W 11-05 14:05
PROVIDERS: ADMIT Internal Medicine; ATTEND Family Medicine
DX: N39.0 Urinary tract infection, site not specified (principal); J44.9 Chronic obstructive pulmonary disease, unspecified; M06.9 Rheumatoid arthritis, unspecified; F41.9 Anxiety disorder, unspecified; E03.9 Hypothyroidism, unspecified; E78.5 Hyperlipidemia, unspecified; K59.09 Other constipation; F17.210 Nicotine dependence, cigarettes, uncomplicated; F43.10 Post-traumatic stress disorder, unspecified; G56.00 Carpal tunnel syndrome, unspecified upper limb; D64.9 Anemia, unspecified; N12 Tubulo-interstitial nephritis, not specified as acute or chronic; G89.4 Chronic pain syndrome; F11.20 Opioid dependence, uncomplicated; R64 Cachexia; Z68.1 Body mass index [BMI] 19.9 or less, adult
CPT/HCPCS: 36415; 71045-TC-FY; 74176-TC; 80053; 81003; 82962; 83605; 83690; 85025; 87040; 87086; 93005; 93010; 99285-25; J0131; U0003

== ENCOUNTER 2019-11-21 08:45 | Emergency (ER) | payer OTHER ==
[2019-11-21 08:56] VITALS: TEMP 98.1; BMI 19.5
--- NOTE | 2019-11-21 09:20 | PDOC ---
History of Present Illness - General Chief Complaint: Constipation Stated Complaint: BLADDER INFECTION/CONSIPATION Time Seen by Provider: 11/21/19 09:07 History Source: Patient Exam Limitations: No Limitations - History of Present Illness Initial Comments: 11/21/19 09:23 49F PMH COPD, chronic UTI, anxiety, hypothyroidism, HLD, opiate dependence on methadone, chronic constipation, rectal fissures presenting with suprapubic pain and lack of BM. Pt states she just finished course of ciprofloxacin for chronic UTI but continues to have suprapubic pain. States lack of BMs x 2 weeks - was seen in this ED and found to have increased fecal load on CT at that visit. No change in methadone dose, endorses occasionally missing synthyroid. Endorses decreased appetite. denies f/c, cp/sob. h/o cholecystectomy. allergies reviewed w/ patient. + smoking, denies etoh and illicit drug use. Patient provides vague hx. Past History - Medical History Allergies/Adverse Reactions: Allergies Allergy/AdvReac Type Severity Reaction Status Date / Time cephalexin monohydrate Allergy Vomiting Verified 11/04/19 15:41 [From Keflex] erythromycin base Allergy Vomiting Verified 11/04/19 15:41 Penicillins Allergy Vomiting Verified 11/04/19 15:41 Sulfa (Sulfonamide Allergy Vomiting Verified 11/04/19 15:41 Antibiotics) ibuprofen AdvReac Severe Vomiting Verified 11/04/19 15:41 ALEVE AdvReac Severe Vomiting Uncoded 11/04/19 15:41 ASPIRIN AdvReac Severe Vomiting Uncoded 11/04/19 15:41 Home Medications: Ambulatory Orders Alprazolam 1 mg PO TID PRN 03/26/16 Levothyroxine [Synthroid -] 100 mcg PO DAILY 03/26/16 Methadone [Dolophine -] 85 mg PO DAILY 03/26/16 Ciprofloxacin HCl [Cipro] 500 mg PO BID #14 tablet 11/06/19 Docusate Sodium [Docusate 100 mg] 300 mg PO HS #90 capsule 11/06/19 Methadone [Dolophine -] 80 mg PO DAILY@0600 tablet 11/06/19 Phenazopyridine HCl [Pyridium] 100 mg PO TID PRN #90 tablet 11/06/19 Polyethylene Glycol 3350 [Miralax 119 gm Btl -] 17 gm PO TID bottle 11/06/19 Sennosides [Senna -] 2 tab PO HS #60 tablet 11/06/19 Sennosides [Senna -] 2 tab PO HS PRN tablet 11/06/19 Magnesium Citrate [Citroma -] 150 ml PO BID #1 bottle 11/21/19 Sodium Phosphate,Traill-Dibasic [Fleet Enema] 133 ml RC DAILY #3 enema 11/21/19 Anemia: Yes (IN THE PAST 10 YRS AGO) Cardiac Disorders: No CVA: No COPD: Yes (EMPHYSEMA) Diabetes: No GI Disorders: No Disorders: No HTN: No Hypercholesterolemia: Yes Kidney Stones: Yes Liver Disease: No Psychiatric Problems: Yes (ANXIETY) Seizures: Yes (CHILDHOOD THEN GREW OUT OF) Thyroid Disease: Yes - Surgical History Abdominal Surgery: No Appendectomy: No Cardiac Surgery: No Cholecystectomy: Yes (gALL BLADDER) Lung Surgery: No Neurologic Surgery: No Orthopedic Surgery: No - Immunization History Immunization Up to Date: Yes - Psycho-Social/Smoking History Smoking History: Current every day smoker Have you smoked in the past 12 months: Yes Number of Cigarettes Smoked Daily: 10 Information on smoking cessation initiated: No 'Breaking Loose' booklet given: 12/21/15 - Substance Abuse Hx (Audit-C & DAST Scrn) How often the patient has a drink containing alcohol: Never Score: In Men: 4 or > Positive; In Women: 3 or > Positive: 0 Screen Result (Pos requires Nsg. Audit-10AR): Negative In the last yr the pt used illegal drug/Rx for NonMed reason: No Score: Yes response is considered Positive: 0 Screen Result (Positive result requires Nsg. DAST-10): Negative Review of Systems - Review of Systems Comments:: 11/22/19 08:00 CONSTITUTIONAL: Denies F / C HEENT: Denies headache,changes in vision / hearing, sore throat, rhinorrhea RESP: Denies SOB, cough CARD: Denies chest pain GI: + constipation, poor PO intake, occasional nbnb vomiting. Denies current N / V, inability to tolerate PO : + suprapubic pain; chronic UTI NEURO: Denies numbness, tingling, weakness MSK: Denies back pain SKIN: Denies rashes *Physical Exam - Vital Signs Last Vital Signs Temp Pulse Resp BP Pulse Ox 98.1 F 67 16 90/69 95 11/21/19 08:48 07/25/20 08:48 11/21/19 08:48 11/21/19 08:48 11/21/19 08:48 - Physical Exam 11/22/19 08:00 GEN: NAD, AAOx3. HEENT: NC/AT, EOMI, PERRL. No facial asymmetry. Normal voice. Supple neck w/ FROM. CV: S1/S2, RRR, no m/r/g LUNG: CTAB, no wheezes, crackles, rales, rhonchi. GI: equivocal Soft, ndnt, +BS, no guarding, no rebound. No masses. Neg CVAT b/l. RECTAL: Exam chaperoned by NIGEL Renae. No hemorrhoids, masses, lesions on inspection. Normal sphincter tone. No masses or nodules of the rectal vault pal pated. No fecal impaction. No blood on glove. MSK: No obvious deformities of all extremities. SKIN: Warm, dry, no rashes appreciated. PSYCH: blunted odd affect NEURO: Moving all extremities well. ambulates w/ normal gait ED Treatment Course - LABORATORY CBC & Chemistry Diagram: 11/21/19 09:45 11/21/19 09:45 Medical Decision Making - Medical Decision Making 11/22/19 08:00 49F c/o suprapubic pain and constipation x 2 weeks w/ poor PO intake. Nondistended soft abdomen with normal BS. Unremarkable rectal exam. -cbc, cmp -ua, uc -abd film -GI cocktail, fluids // pt labs were reviewed XR demonstrating fecal load pt was given miralax and mag-citrate in ED DC home w/ Rx for fleet enema, PCP f/u, and GI f/u Discharge - Discharge Information Problems reviewed: Yes Clinical Impression/Diagnosis: Constipation Condition: Stable - Admission No - Additional Discharge Information Prescriptions: Magnesium Citrate [Citroma -] 150 ml PO BID #1 bottle Sodium Phosphate,Traill-Dibasic [Fleet Enema] 133 ml RC DAILY #3 enema - Follow up/Referral Referrals: Yony Joel MD [Primary Care Provider] - Keren Villaseñor MD [Staff Physician] - - Patient Discharge Instructions Patient Printed Discharge Instructions: DI for Constipation Additional Instructions: We sent medications to your pharmacy. Please pick them up and take as prescribed. Drink plenty of fluids. Continue your home medications as prescribed. Follow up with your primary care doctor in the next 5-10 days. Follow up with your urologist in the next 5-7 days. Follow up with Gastroenterology in the next 5-10 days. We are referring you to Dr. Villaseñor - please call the attached number to schedule an appointment. Alternatively, you may use any Control Clerk in your insurance network. Return to the Emergency Department if you experience new or worsening symptoms. - Post Discharge Activity
[2019-11-21] MEDS ORDERED: MAG HYDROX/AL HYDROX/SIMETH 30 ML UNIT-DOSE CUP PO ONE (09:40)
[2019-11-21] MEDS ORDERED: FAMOTIDINE 20 MG/50 ML IVPB 20 MG/50 ML MG IVPB ONE ×2 (09:40→09:49)
[2019-11-21] MEDS ORDERED: SODIUM CHLORIDE 0.9% 500 ML INFUS.BAG IV ONE (09:40)
[2019-11-21] MEDS ORDERED: ACETAMINOPHEN 500 MG TABLET (FP) PO ONE (09:40)
[2019-11-21] MEDS ORDERED: POLYETHYLENE GLYCOL 3350 119 GM BTL PO ONE (09:48)
[2019-11-21] MEDS ORDERED: ACETAMINOPHEN 325 MG TABLET (FP) ONE (09:49)
[2019-11-21] MEDS ORDERED: MAG HYDROX/AL HYDROX/SIMETH 30 ML UNIT-DOSE CUP ONE (09:49)
[2019-11-21 09:57] LABS: EOS % 2.7 % (0-4.5); HEMATOCRIT 34.6 % (32.4-45.2); HEMOGLOBIN 11.6 GM/dL (10.7-15.3); LYMPH % 31.5 % (8-40); MCH 33.9 pg (25.7-33.7); MCHC 33.5 g/dl (32.0-36.0); MEAN CELL VOLUME 101.3 fl (80-96); MEAN PLT VOLUME 9.9 fl (7.5-11.1); MONO % 11.3 % (3.8-10.2); NEUT % 53.5 % (42.8-82.8); PLATELET COUNT 223 K/MM3 (134-434); RBC 3.41 M/mm3 (3.60-5.2); WHITE BLOOD COUNT 7.2 K/mm3 (4.0-10.0)
[2019-11-21 10:02] LABS: EPI CELLS >36 /uL (0-25.1); HYALINE CASTS 6 /uL (0-3.1); URINE APPEARANCE CLOUDY; URINE BACTERIA 631 /uL (0-1359); URINE BILIRUBIN NEGATIVE (NEGATIVE); URINE COLOR DK YELLOW; URINE GLUCOSE (UA) NEGATIVE (NEGATIVE); URINE KETONE TRACE (NEGATIVE); URINE LEUK ESTERASE NEGATIVE (NEGATIVE); URINE NITRITE NEGATIVE (NEGATIVE); URINE PROTEIN NEGATIVE (NEGATIVE); URINE WBC 9 /uL (0-25.8)
[2019-11-21 10:22] LABS: ALBUMIN 3.3 g/dl (3.4-5.0); BILIRUBIN,TOTAL 0.3 mg/dL (0.2-1); CALCIUM 8.7 mg/dL (8.5-10.1); TOT PROT 6.3 g/dl (6.4-8.2)
[2019-11-21] MEDS ORDERED: MAGNESIUM CITRATE 300 ML BOTTLE PO ONE (10:47)
--- NOTE | 2019-11-21 10:48 | PDOC ---
Documentation entered by Eric Long SCRIBE, acting as scribe for Ruthann Preston MD. Ruthann Preston MD: This documentation has been prepared by the Ethan pizano Aaron, SCRIBE, under my direction and personally reviewed by me in its entirety. I confirm that the documentation accurately reflects all work, treatment, procedures, and medical decision making performed by me. Attending Attestation - Resident Resident Name: TremaineStuart - ED Attending Attestation I have performed the following: I have examined & evaluated the patient, The case was reviewed & discussed with the resident, I agree w/resident's findings & plan, Exceptions are as noted - HPI HPI: The patient is a 49 year old female, with a significant PMH of COPD, RA, frequent UTIs, anxiety, hypothyroidism, HLD, on methadone, chronic constipation, anal fissures, kidney stones, who presents with constipation and suprapubic pain x2 weeks. Patient reports associated diffuse abdominal pain and decreased PO intake. Pt states she endorsed nbnb emesis 3 days ago. The patient denies chest pain, shortness of breath, fever and chills. Denies any other related symptoms. Allergies: cephalexin monohydrate, erythromycin base, Penicillins, Sulfa (Sulfonamide Antibiotics), ibuprofen, aleve, aspirin Surgical History: cholecystectomy Social History: Current everyday smoker PCP: Yony Reese - Physicial Exam PE: 11/21/19 10:41 General: non-toxic appearing HEENT: NCAT Abdomen: soft, nt, no rebound, no guarding Neuro: awake, alert, responds to questions appropriately, no focal deficits - Medical Decision Making 11/21/19 10:44 49 yo F with likely constipation 2/2 opioid use, doubt obstruction as patient has had similar presentations in the past and CT negative for obstruction and hx and exam more consistent with constipation 2/2 opioid use. Also reporting dysuria, possible UTI, patient has h/o chronic UTIs with recent completion of course of abx and following with urology. Plan: -labs -urine -AXR -if no concerning findings on imaging or labs will d/c with return precautions and bowel regimen and PMD, GI as well as f/u, patient could likely benefit from colonoscopy as outpatient This clinical encounter is taking place during a [facility] and [facility] emergency attributable to the novel [place] Virus pandemic. The [place] of the Department of Health and Human Services has declared, pursuant to the Public Health Service Act 319F-3 (42 U.S.C. 247d-6d), that a covered persons activities related to medical countermeasures against COVID-19 will be immune from liability under Federal and State law. Discharge - Discharge Information Problems reviewed: Yes Clinical Impression/Diagnosis: Constipation Condition: Stable - Additional Discharge Information Prescriptions: Magnesium Citrate [Citroma -] 150 ml PO BID #1 bottle Sodium Phosphate,[place]-Dibasic [Fleet Enema] 133 ml RC DAILY #3 enema - Follow up/Referral Referrals: Keren Villaseñor MD [Staff Physician] - Yony Joel MD [Primary Care Provider] - - Patient Discharge Instructions Patient Printed Discharge Instructions: DI for Constipation Additional Instructions: We sent medications to your pharmacy. Please pick them up and take as prescribed. Drink plenty of fluids. Continue your home medications as prescribed. Follow up with your primary care doctor in the next 5-10 days. Follow up with your urologist in the next 5-7 days. Follow up with Gastroenterology in the next 5-10 days. We are referring you to Dr. Villaseñor - please call the attached number to schedule an appointment. Alternatively, you may use any [facility] in your insurance network. Return to the Emergency Department if you experience new or worsening symptoms. - Post Discharge Activity
[2019-11-21] MEDS ORDERED: MAGNESIUM CITRATE 300 ML BOTTLE ONE (11:15)
[2019-11-21 11:22] VITALS: BP 111/81; PULSE 66
[2019-11-21 12:18] LABS: YEAST POSITIVE (NEGATIVE)
== END 2019-11-21 11:53 | disposition home or self-care (01) ==
LOC: JER 08:45
PROC: 3E033NZ Introduction of Analgesics, Hypnotics, Sedatives into Peripheral Vein, Percutaneous Approach (ICD-10-PCS; principal; 2019-11-21)
DX: K59.00 Constipation, unspecified (principal)
CPT/HCPCS: 36415; 74018-TC-FY; 80053; 81003; 85025; 87086; 99285-25

== ENCOUNTER 2020-02-02 12:28 | Emergency (ER) | payer OTHER ==
[2020-02-02 12:42] VITALS: BMI 16.5
[2020-02-02 13:20] LABS: EOS % 3.2 % (0-4.5); HEMOGLOBIN 13.1 GM/dL (10.7-15.3); LYMPH % 39.7 % (8-40); MCH 32.6 pg (25.7-33.7); MCHC 33.6 g/dl (32.0-36.0); MEAN CELL VOLUME 97.1 fl (80-96); MEAN PLT VOLUME 9.1 fl (7.5-11.1); MONO % 10.6 % (3.8-10.2); NEUT % 45.5 % (42.8-82.8); PLATELET COUNT 166 K/MM3 (134-434); RBC 4.02 M/mm3 (3.60-5.2); RDW 13.6 % (11.6-15.6); WHITE BLOOD COUNT 5.6 K/mm3 (4.0-10.0)
[2020-02-02 13:37] LABS: EPI CELLS >36 /uL (0-25.1); HYALINE CASTS 17 /uL (0-3.1); URINE APPEARANCE CLOUDY; URINE BILIRUBIN 2+ (NEGATIVE); URINE COLOR DK YELLOW; URINE GLUCOSE (UA) NEGATIVE (NEGATIVE); URINE KETONE TRACE (NEGATIVE); URINE LEUK ESTERASE TRACE (NEGATIVE); URINE NITRITE POSITIVE (NEGATIVE); URINE PROTEIN TRACE (NEGATIVE); URINE WBC 28 /uL (0-25.8)
[2020-02-02] MEDS ORDERED: ACETAMINOPHEN 1000 MG/100 ML VIAL (NON FORMULARY) IVPB ONE (13:39)
[2020-02-02] MEDS ORDERED: SODIUM CHLORIDE 0.9% 500 ML INFUS.BAG IV ONE (13:39)
--- NOTE | 2020-02-02 13:39 | PDOC ---
History of Present Illness - General Chief Complaint: Pain Stated Complaint: STOMACH PAIN Time Seen by Provider: 02/02/20 13:22 History Source: Patient Exam Limitations: No Limitations - History of Present Illness Initial Comments: 02/02/20 14:06 49F PMH COPD, anxiety, hypothyroidism, HLD, opiate dependence on methadone, chronic constipation, rectal fissures, chronic UTI c/o 1 month of constipation causing severe bouts of pain and lower pelvic pressure, denies vaginal bleeding and discharge. Not sexually active. Bouts of pain cause her to want to pass out. No LOC. No fevers, chills. Endorses dysuria, states she has frequent UTIs and was prescribed cipro by Dr. Thalia Joel of which she picked up 4 days ago at [facility] in [place]. Has had CHEMIST PROTEINS eval within the last 6 months. Patient again provides a vague history. Past History - Medical History Allergies/Adverse Reactions: Allergies Allergy/AdvReac Type Severity Reaction Status Date / Time cephalexin monohydrate Allergy Vomiting Verified 02/02/20 12:36 [From Keflex] erythromycin base Allergy Vomiting Verified 02/02/20 12:36 Penicillins Allergy Vomiting Verified 02/02/20 12:36 Sulfa (Sulfonamide Allergy Vomiting Verified 02/02/20 12:36 Antibiotics) ibuprofen AdvReac Severe Vomiting Verified 02/02/20 12:36 ALEVE AdvReac Severe Vomiting Uncoded 02/02/20 12:36 ASPIRIN AdvReac Severe Vomiting Uncoded 02/02/20 12:36 Home Medications: Ambulatory Orders Alprazolam 1 mg PO TID PRN 03/26/16 Levothyroxine [Synthroid -] 100 mcg PO DAILY 03/26/16 Methadone [Dolophine -] 85 mg PO DAILY 03/26/16 Ciprofloxacin HCl [Cipro] 500 mg PO BID #14 tablet 11/06/19 Docusate Sodium [Docusate 100 mg] 300 mg PO HS #90 capsule 11/06/19 Phenazopyridine HCl [Pyridium] 100 mg PO TID PRN #90 tablet 11/06/19 Polyethylene Glycol 3350 [Miralax 119 gm Btl -] 17 gm PO TID bottle 11/06/19 Sennosides [Senna -] 2 tab PO HS #60 tablet 11/06/19 Sennosides [Senna -] 2 tab PO HS PRN tablet 11/06/19 Magnesium Citrate [Citroma -] 150 ml PO BID #1 bottle 11/21/19 Sodium Phosphate,[place]-Dibasic [Fleet Enema] 133 ml RC DAILY #3 enema 11/21/19 Metoclopramide HCl [Reglan -] 10 mg PO BID #14 tablet 02/02/20 Nitrofurantoin Monohyd/M-Cryst [Macrobid -] 100 mg PO BID #14 capsule 02/02/20 Anemia: Yes (IN THE PAST 10 YRS AGO) Cardiac Disorders: No CVA: No COPD: Yes (EMPHYSEMA) Diabetes: No GI Disorders: No Disorders: No HTN: No Hypercholesterolemia: Yes Kidney Stones: Yes Liver Disease: No Psychiatric Problems: Yes (ANXIETY) Seizures: Yes (CHILDHOOD THEN GREW OUT OF) Thyroid Disease: Yes - Surgical History Abdominal Surgery: No Appendectomy: No Cardiac Surgery: No Cholecystectomy: Yes (gALL BLADDER) Lung Surgery: No Neurologic Surgery: No Orthopedic Surgery: No - Reproductive History Is Patient Now?: No - Immunization History Immunization Up to Date: Yes - Psycho-Social/Smoking History Smoking History: Current every day smoker Have you smoked in the past 12 months: Yes Number of Cigarettes Smoked Daily: 10 Information on smoking cessation initiated: No 'Breaking Loose' booklet given: 12/21/15 - Substance Abuse Hx (Audit-C & DAST Scrn) How often the patient has a drink containing alcohol: Never Score: In Men: 4 or > Positive; In Women: 3 or > Positive: 0 Screen Result (Pos requires Nsg. Audit-10AR): Negative In the last yr the pt used illegal drug/Rx for NonMed reason: No Score: Yes response is considered Positive: 0 Screen Result (Positive result requires Nsg. DAST-10): Negative Review of Systems - Review of Systems Comments:: CONSTITUTIONAL: Denies F / C HEENT: dizziness with bouts of abdominal pain only RESP: Denies SOB CARD: Denies chest pain GI: +constipation, bouts of generalized abdominal pain. Denies N / V / D : + dysuria NEURO: Denies numbness, tingling, weakness MSK: Denies back pain SKIN: Denies rashes *Physical Exam - Vital Signs Last Vital Signs Temp Pulse Resp BP Pulse Ox 97.9 F 77 20 91/56 L 95 02/02/20 12:37 02/02/20 12:37 02/02/20 12:37 02/02/20 12:37 02/02/20 12:37 - Physical Exam GEN: NAD, AAOx3. HEENT: NC/AT, EOMI, PERRL. No facial asymmetry. Normal voice. Supple neck w/ FROM. CV: S1/S2, RRR, no m/r/g LUNG: WOB nl. CTAB, no wheezes, crackles, rales, rhonchi. GI: normoactive BS, mild generalized discomfort on palpation, nondistended, no masses RECTAL: Exam chaperoned by Dr. Hernandez. No hemorrhoids, masses, lesions on inspection. No active bleeding or oozing from anus. Normal sphincter tone. Significant amount of hard stool within the vault. Manual disimpaction attempted that yielded one small hard stool but patient unable to tolerate procedure. No blood on stool or glove. MSK: No obvious deformities of all extremities. SKIN: Warm, dry, no rashes appreciated. PSYCH: odd, blunted affect NEURO: Moving all extremities well. ED Treatment Course - LABORATORY CBC & Chemistry Diagram: 02/02/20 10:15 02/02/20 10:15 - ADDITIONAL ORDERS Additional order review: Laboratory Results 02/02/20 02/02/20 13:00 13:00 Urine Color Dk yellow Urine Appearance Cloudy Urine pH 5.0 Ur Specific [place] 1.025 Urine Protein Trace Urine Glucose (UA) Negative Urine Ketones Trace H Urine Blood 2+ H Urine Nitrite Positive H Urine Bilirubin 2+ H Urine Urobilinogen 1.0 Ur Leukocyte Esterase Trace Urine WBC (Auto) 28 Urine Casts (Auto) 17 U Epithel Cells (Auto) >36 Urine HCG, Qual Negative 02/02/20 10:15 RBC 4.02 MCV 97.1 H MCHC 33.6 RDW 13.6 MPV 9.1 Neutrophils % 45.5 Lymphocytes % 39.7 D Monocytes % 10.6 H Eosinophils % 3.2 Basophils % 1.0 Medical Decision Making - Medical Decision Making 49F on chronic methadone and h/o constipation presenting with one month of constipation. also endorsing dysuria, states she recently picked up cirpo at [facility] in [place]. A call to that [facility] reveals ciprofloxacin last prescribed and picked up on 11/27/19. Generalized abdominal discomfort on exam, nondistended, normoactive bowel sounds. Large amount of hard impacted stool on rectal exam but patient could not tolerate disimpaction. Will check labs and treat fecal impaction. Pt has had multiple abdominal CTs this year showing fecal retention. - CBC, CMP - UA, UC - Enema, miralax - reassess - plan to dc home w/ PCP and CHEMIST PROTEINS f/u 02/02/20 14:31 - labs reviewed - UTI on UA - review of previous UCx demonstrates no growth or normal skin sven - given keflex allergy; will treat with macrobid - pt requesting toradol; has ibuprofen allergy which was clarified with patient. Pt has received toradol multiple times without reactions. - will provide toradol and monitor 02/02/20 16:18 Patient made a BM s/p treatment will dc home w/ PCP, GI, and CHEMIST PROTEINS f/u sending macrobid and reglan rx Discharge - Discharge Information Problems reviewed: Yes Clinical Impression/Diagnosis: Chronic constipation, Constipation, Methadone dependence UTI (urinary tract infection) Qualifiers: Urinary tract infection type: site unspecified Hematuria presence: without hematuria Qualified Code(s): N39.0 - Urinary tract infection, site not specified Abdominal pain Qualifiers: Abdominal location: generalized Qualified Code(s): R10.84 - Generalized abdominal pain Condition: Stable Disposition: HOME - Admission No - Additional Discharge Information Prescriptions: Nitrofurantoin Monohyd/M-Cryst [Macrobid -] 100 mg PO BID #14 capsule Metoclopramide HCl [Reglan -] 10 mg PO BID #14 tablet - Follow up/Referral Referrals: [facility] [Provider Group] Yony Joel MD [Primary Care Provider] - Armando Beltran DO [Staff Physician] - - Patient Discharge Instructions Patient Printed Discharge Instructions: DI for Urinary Tract Infection (UTI), DI for Constipation, DI for Prescription Opioid Use Additional Instructions: Continue your home medications as prescribed. Follow up with your Primary Care Doctor regarding this ED visit in the next 10 days. Follow up with Gastroenterology in the next 10-14 days. We referred you to Dr. Beltran; call to schedule an appointment. Follow up with your CHEMIST PROTEINS in the next 10-14 days. If you are need of a new CHEMIST PROTEINS, we have referred [facility] which you can call to schedule an appointment. Return to the nearest Emergency Department if you experience new or worsening symptoms - Post Discharge Activity
--- NOTE | 2020-02-02 13:39 | EKG ---
Test Reason : Blood Pressure : / mmHG Vent. Rate : 067 BPM Atrial Rate : 067 BPM P-R Int : 164 ms QRS Dur : 080 ms QT Int : 422 ms P-R-T Axes : 068 018 072 degrees QTc Int : 445 ms NORMAL SINUS RHYTHM POSSIBLE LEFT ATRIAL ENLARGEMENT SEPTAL INFARCT (CITED ON OR BEFORE 15-FEB-2015) ABNORMAL ECG WHEN COMPARED WITH ECG OF 04-NOV-2019 19:08, PREMATURE VENTRICULAR COMPLEXES ARE NO LONGER PRESENT NONSPECIFIC T WAVE ABNORMALITY, WORSE IN LATERAL LEADS Confirmed by Tacos Garrido MD ([id number]) on 02/02/2020 1:39:02 PM Referred By: Confirmed By:Tacos Garrido MD
[2020-02-02 13:51] LABS: ALBUMIN 3.5 g/dl (3.4-5.0); BILIRUBIN,TOTAL 0.3 mg/dL (0.2-1); BLOOD UREA NITROGEN 13.3 mg/dL (7-18); CALCIUM 8.5 mg/dL (8.5-10.1); CREATININE 1.3 mg/dL (0.55-1.3); POTASSIUM 4.1 mmol/L (3.5-5.1); TOT PROT 6.7 g/dl (6.4-8.2)
[2020-02-02 13:56] LABS: URINE BACTERIA 1012.3 /uL (0-1359); URINE RBC 198.5 /uL (0-23.9)
[2020-02-02] MEDS ORDERED: ACETAMINOPHEN INJECTION 100 ML IVPB ONE (14:01)
[2020-02-02] MEDS ORDERED: MINERAL OIL ENEMA 133 ML ENEMA PR ONE (14:31)
[2020-02-02] MEDS ORDERED: POLYETHYLENE GLYCOL 3350 119 GM BTL PO ONE (14:31)
[2020-02-02] MEDS ORDERED: NITROFURANTOIN MACROCRYSTAL 50 MG CAPSULE (FP) PO SCH (14:45)
[2020-02-02] MEDS ORDERED: KETOROLAC TROMETHAMINE 15 MG/ML VIAL IVPUSH ONE (14:48)
[2020-02-02] MEDS ORDERED: METOCLOPRAMIDE HCL 10 MG TABLET (FP) PO ONE (14:48)
--- NOTE | 2020-02-02 14:56 | PDOC ---
Attending Attestation - Resident Resident Name: Stuart Penaloza - ED Attending Attestation I have performed the following: I have examined & evaluated the patient, The case was reviewed & discussed with the resident, I agree w/resident's findings & plan - HPI HPI: 02/02/20 14:48 49-year-old female with history of with opiate dependence on methadone, frequent UTIs in the past recently diagnosed per her report by Dr. Joel and started on Cipro, presents now with acute on chronic abdominal discomfort with UTI symptoms. Nausea but no vomiting, constipation is also chronic, no fevers or chills, no retention. No LOG SORTER complaints, was seen by her LOG SORTER 6 months ago and work-up within normal limits. - Physicial Exam PE: 02/02/20 14:50 Vital signs within normal limits Cachectic woman lying in stretcher in no acute distress No jaundice or pallor, moist mucosa Heart is regular, lungs are clear Abdomen is soft/nondistended. Suprapubic discomfort to palpation without guarding or rebound, no CVA tenderness. - Medical Decision Making 02/02/20 14:51 49-year-old female with acute on chronic complaints, constipation and recent symptoms of UTI. Labs are within normal limits, no leukocytosis, lipase normal Urinalysis consistent with UTI. Reportedly on day 3 or 4 of Cipro, will switch to Macrobid. Reglan for nausea Bowel regimen, no indication for emergent imaging, presentation not consistent with obstruction. Attempted disimpaction with some success. GI referral, referral, understands return criteria. Heart Score/ECG Review #1 ECG reviewed & interpreted by me at: 13:03 General ECG Interpretation: Sinus Rhythm, Normal Rate (67), Normal Intervals (qtc 445), No acute ischemic changes (nonspecific T wave flattening) Discharge - Discharge Information Problems reviewed: Yes Clinical Impression/Diagnosis: Chronic constipation UTI (urinary tract infection) Qualifiers: Urinary tract infection type: site unspecified Hematuria presence: without hematuria Qualified Code(s): N39.0 - Urinary tract infection, site not specified Abdominal pain Qualifiers: Abdominal location: generalized Qualified Code(s): R10.84 - Generalized abdominal pain - Follow up/Referral Referrals: Yony Joel MD [Primary Care Provider] - - Patient Discharge Instructions - Post Discharge Activity
[2020-02-02] MEDS ORDERED: KETOROLAC TROMETHAMINE 15 MG/ML VIAL ONE (15:12)
[2020-02-02] MEDS ORDERED: NITROFURANTOIN MACROCRYSTAL 50 MG CAPSULE (FP) ONE (15:12)
[2020-02-02] MEDS ORDERED: METOCLOPRAMIDE HCL INJECTION 10 MG/2 ML VIAL ONE (15:12)
[2020-02-02 17:31] VITALS: BP 105/65; PULSE 81; TEMP 98.1
== END 2020-02-02 17:31 | disposition home or self-care (01) ==
LOC: JER 12:28
PROC: 3E0333Z Introduction of Anti-inflammatory into Peripheral Vein, Percutaneous Approach (ICD-10-PCS; principal; 2020-02-02)
PROC: 3E033GC Introduction of Other Therapeutic Substance into Peripheral Vein, Percutaneous Approach (ICD-10-PCS; 2020-02-02)
DX: K59.00 Constipation, unspecified (principal); N39.0 Urinary tract infection, site not specified; R10.84 Generalized abdominal pain
CPT/HCPCS: 36415; 80053; 81003; 83690; 83735; 84703; 85025; 93005; 93010; 99284-25; J0131

== ENCOUNTER 2021-02-28 17:47 | Emergency (ER) | payer OTHER ==
[2021-02-28 17:57] VITALS: BP 116/78; PULSE 71; TEMP 97.6; BMI 19.7
[2021-02-28 19:04] LABS: BASO % 0.2 % (0-2.0); EOS % 1.6 % (0-4.5); HEMATOCRIT 38.8 % (32.4-45.2); HEMOGLOBIN 13.4 GM/dL (10.7-15.3); LYMPH % 28.5 % (8-40); MCHC 34.6 g/dl (32.0-36.0); MEAN CELL VOLUME 95.6 fl (80-96); MEAN PLT VOLUME 8.2 fl (7.5-11.1); MONO % 12.2 % (3.8-10.2); NEUT % 57.5 % (42.8-82.8); PLATELET COUNT 323 10^3/uL (134-434); RBC 4.06 M/mm3 (3.60-5.2); RDW 13.3 % (11.6-15.6); WHITE BLOOD COUNT 8.1 K/mm3 (4.0-10.0)
[2021-02-28 19:08] LABS: EPI CELLS 15 /uL (0-25.1); HYALINE CASTS 0 /uL (0-3.1); PH,URINE 5.5 (5.0-8.0); URINE APPEARANCE CLEAR; URINE BACTERIA 306 /uL (0-1359); URINE BILIRUBIN NEGATIVE (NEGATIVE); URINE COLOR YELLOW; URINE GLUCOSE (UA) NEGATIVE (NEGATIVE); URINE KETONE NEGATIVE (NEGATIVE); URINE LEUK ESTERASE NEGATIVE (NEGATIVE); URINE NITRITE NEGATIVE (NEGATIVE); URINE PROTEIN NEGATIVE (NEGATIVE); URINE RBC 82 /uL (0-23.9); URINE UROBILINOGEN 0.2 mg/dL (0.2-1.0)
[2021-02-28 19:23] LABS: CALCIUM 8.8 mg/dL (8.5-10.1)
[2021-02-28 19:24] LABS: ALBUMIN 3.5 g/dl (3.4-5.0); BLOOD UREA NITROGEN 8.7 mg/dL (7-18)
[2021-02-28 19:29] LABS: BILIRUBIN,TOTAL 0.2 mg/dL (0.2-1); TOT PROT 7.6 g/dl (6.4-8.2)
[2021-02-28 19:52] LABS: SYPHILIS W/ RPR CONF NON-REACTIVE (NONREACTIVE)
[2021-02-28] MEDS ORDERED: DOXYCYCLINE HYCLATE 100 MG CAPSULE PO ONE ×2 (19:55→20:02)
[2021-02-28 20:20] LABS: HIV INTERPRETATION NEGATIVE (NEGATIVE)
[2021-02-28 22:39] LABS: URINE WBC 86 /uL (0-25.8)
== END 2021-02-28 20:22 | disposition home or self-care (01) ==
LOC: JERFT 17:47
DX: R07.0 Pain in throat (principal); Z20.2 Contact with and (suspected) exposure to infections with a predominantly sexual mode of transmission
CPT/HCPCS: 36415; 80053; 81003; 84436; 84439; 84443; 84479; 85025; 86780; 87070; 87077; 87086; 87205; 87389; 87491; 87591; 99284-25